=== PATIENT | female | born 1930 | race Two or more races ===

== ENCOUNTER 2016-07-07 09:47 | Inpatient (IN) | payer OTHER, MEDICAID ==
[~2016-07-07] VITALS: Ht 165.1 cm; Wt 23.2 kg
[2016-07-07 10:38] LABS: Basophils # (auto) 0 uL; Eosinophils # (auto) 0 uL; Hematocrit 35.7 % (36.0-46.0); Hemoglobin 11.9 g/dL (12.2-16.2); Lymphocytes # (auto) 0.5 uL; Lymphocytes % (auto) 6.9 % (10.0-50.0); Mean Corpuscular Hemoglobin 30.1 pg (28.0-32.0); Mean Corpuscular Hgb Conc. 33.4 g/dL (32.0-36.0); Mean Platelet Volume 8.1 fL (7.4-10.4); Monocytes # (auto) 0.5 uL; Monocytes % (auto) 6.9 % (0.0-12.0); Neutrophils # (auto) 6.2 uL; Neutrophils % (auto) 86.2 % (37.0-80.0); Platelet Count (auto) 190 10^3/uL (140-450); Red Cell Distribution Width 13.1 % (11.6-16.0); White Blood Cell 7.3 10^3/uL (4.4-10.8)
[2016-07-07 10:55] LABS: Albumin 2.7 g/dL (3.4-5.0); BUN/Creatinine Ratio 13.5; Bilirubin, Total 0.2 mg/dL (0.2-1.0); Potassium 3.6 mmol/L (3.5-5.1); Total Protein 6.6 g/dL (6.4-8.2)
[2016-07-07 12:11] LABS: INR 1.04 (0.9-1.15); Partial Thromboplastin Time 29.5 sec (22.64-33.71); Prothrombin Time 10.7 sec (9.37-12.3)
[2016-07-07 12:51] LABS: B-Type Natriuretic Peptide 303.7 pg/mL (0-100); Temperature: 22.5 C (20.0-25.0)
[2016-07-07] MEDS ORDERED: IPRATROPIUM BROM 0.5 MG/2.5ML INH SOL NEB ONE (13:00)
[2016-07-07] MEDS ORDERED: ALBUTEROL SULF 2.5 MG/0.5ML(0.5%) NEB SOLN NEB ONE (13:00)
[2016-07-07] MEDS ORDERED: FUROSEMIDE 20 MG/2 ML VIAL IV ONE (13:00)
[2016-07-07] MEDS ORDERED: TEMAZEPAM 15 MG CAP PO PRN (13:15)
[2016-07-07] MEDS ORDERED: ALBUTEROL SULF 2.5 MG/0.5ML(0.5%) NEB SOLN NEB PRN (13:15)
[2016-07-07] MEDS ORDERED: ACETAMINOPHEN 500 MG TAB PO PRN (13:15)
[2016-07-07] MEDS ORDERED: OSELTAMIVIR 75 MG CAP PO ONE (13:15)
[2016-07-07] MEDS ORDERED: methylPREDNISolone SOD SUCC 40 MG/ML VL IV SCH (13:15)
[2016-07-07] MEDS ORDERED: LORazepam 0.5 MG TAB PO PRN (13:15)
[2016-07-07] MEDS ORDERED: ONDANSETRON HCL 4 MG/2 ML VIAL IV PRN (13:15)
[2016-07-07] MEDS ORDERED: MORPHINE SULF INJ 2 MG/ML SYRINGE 1ML IV PRN ×2 (13:15)
[2016-07-07] MEDS ORDERED: HYDROcodone-ACET 5/325MG TAB PO PRN (13:15)
[2016-07-07] MEDS ORDERED: LACTULOSE 20Gm/30ML SOLN PO PRN ×2 (13:15)
[2016-07-07] MEDS ORDERED: NITROGLYCERIN 0.4 MG SL TAB SL PRN (13:15)
[2016-07-07] MEDS ORDERED: ENOXAPARIN SOD 40 MG/0.4 ML SYRINGE SC ONE (13:30)
[2016-07-07] MEDS: SODIUM CHLOR 0.9% PF (SALINE LOCK) 10ML VIAL IV SCH ×2 (13:42→22:10)
[2016-07-07] MEDS ORDERED: [UNRECOGNIZED DRUG - CODE] PO (14:10)
[2016-07-07] MEDS ORDERED: ATOR40TA52 PO (14:10)
[2016-07-07] MEDS ORDERED: AMLO5TAB2 PO (14:11)
[2016-07-07] MEDS ORDERED: LISI40TA PO (14:11)
[2016-07-07] MEDS ORDERED: IOHEXOL 350 MG/ML 100ML IJ ONE (14:11)
[2016-07-07] MEDS ORDERED: MELO-85 PO (14:11)
[2016-07-07] MEDS: ALBUTEROL SULF 2.5 MG/0.5ML(0.5%) NEB SOLN NEB SCH (18:24)
[2016-07-07] MEDS: IPRATROPIUM BROM 0.5 MG/2.5ML INH SOL NEB SCH (18:24)
[2016-07-07 20:54] VITALS: BP 127/64
[2016-07-07] MEDS ORDERED: OSELTAMIVIR 75 MG CAP PO SCH (22:00)
[2016-07-07] MEDS: CARVEDILOL 3.125 MG TAB PO SCH (22:17)
[2016-07-08] MEDS: IPRATROPIUM BROM 0.5 MG/2.5ML INH SOL NEB SCH ×4 (00:38→19:51)
[2016-07-08] MEDS: ALBUTEROL SULF 2.5 MG/0.5ML(0.5%) NEB SOLN NEB SCH ×4 (00:38→19:51)
[2016-07-08] MEDS: SODIUM CHLOR 0.9% PF (SALINE LOCK) 10ML VIAL IV SCH ×3 (06:19→21:41)
[2016-07-08 07:55] LABS: B-Type Natriuretic Peptide 484.55 pg/mL (0-100)
[2016-07-08 07:56] LABS: Temperature: 22.5 C (20.0-25.0)
[2016-07-08] MEDS ORDERED: FUROSEMIDE 40 MG/4 ML VIAL IV SCH (10:00)
[2016-07-08] MEDS ORDERED: POTASSIUM CHL 20 Meq TABLET PO SCH (10:00)
[2016-07-08] MEDS ORDERED: OSELTAMIVIR 30 MG CAP PO SCH (10:00)
[2016-07-08] MEDS ORDERED: NITROGLYCERIN 0.2MG/HR TOPICAL PATCH TD SCH (10:00)
[2016-07-08] MEDS ORDERED: ENOXAPARIN SOD 40 MG/0.4 ML SYRINGE SC SCH (10:00)
[2016-07-08] MEDS: ENALAPRIL MALEATE 2.5 MG TAB PO SCH (10:36)
[2016-07-08] MEDS: CARVEDILOL 3.125 MG TAB PO SCH ×2 (10:37→21:42)
[2016-07-08] MEDS: AZITHROMYCIN 500MG/D5W 250ML 250 ML IV SCH (10:37)
[2016-07-08] MEDS: ASPirin 81 mg TAB PO SCH (10:37)
[2016-07-08] MEDS: OSELTAMIVIR 30 MG CAP PO SCH ×2 (11:21→21:42)
[2016-07-08 16:15] VITALS: BP 126/64
[2016-07-08] MEDS ORDERED: SODIUM CHLORIDE 0.9% 1,000 ML IV SCH (17:15)
[2016-07-08] MEDS ORDERED: WARFARIN SODIUM 5 MG TAB PO ONE (17:45)
[2016-07-08 18:19] VITALS: BP 126/64
[2016-07-08 20:18] VITALS: BP 149/71
[2016-07-08] MEDS: methylPREDNISolone SOD SUCC 40 MG/ML VL IV SCH (21:41)
[2016-07-09 00:58] VITALS: BP 125/61
[2016-07-09 04:42] VITALS: BP 124/78
[2016-07-09] MEDS: SODIUM CHLOR 0.9% PF (SALINE LOCK) 10ML VIAL IV SCH ×2 (04:57→13:42)
[2016-07-09] MEDS: methylPREDNISolone SOD SUCC 40 MG/ML VL IV SCH ×2 (04:57→13:42)
[2016-07-09] MEDS: ALBUTEROL SULF 2.5 MG/0.5ML(0.5%) NEB SOLN NEB SCH ×3 (05:45→11:46)
[2016-07-09] MEDS: IPRATROPIUM BROM 0.5 MG/2.5ML INH SOL NEB SCH ×3 (05:45→11:46)
[2016-07-09 06:27] LABS: INR 1.06 (0.9-1.15); Partial Thromboplastin Time 25.9 sec (22.64-33.71); Prothrombin Time 10.9 sec (9.37-12.3)
[2016-07-09 08:00] VITALS: BP 122/66
[2016-07-09] MEDS: AZITHROMYCIN 500MG/D5W 250ML 250 ML IV SCH (10:15)
[2016-07-09] MEDS: ASPirin 81 mg TAB PO SCH (10:15)
[2016-07-09] MEDS: ENALAPRIL MALEATE 2.5 MG TAB PO SCH (10:16)
[2016-07-09] MEDS: OSELTAMIVIR 30 MG CAP PO SCH (10:16)
[2016-07-09] MEDS: CARVEDILOL 3.125 MG TAB PO SCH (10:16)
[2016-07-09 11:42] VITALS: BP 118/66
[2016-07-09] MEDS ORDERED: ALBUAER3 IN (12:58)
[2016-07-09] MEDS ORDERED: METH4PAK PO (12:58)
[2016-07-09] MEDS ORDERED: ENA2.5T PO (12:58)
[2016-07-09] MEDS ORDERED: CAR3125T PO (12:58)
[2016-07-09] MEDS ORDERED: LEVO500T3 PO (12:58)
[2016-07-09] MEDS ORDERED: WARPRX PO (12:58)
[2016-07-09 16:00] VITALS: BP 133/75
[2016-07-09 16:10] VITALS: BP 133/75
[2016-07-09] MEDS ORDERED: WARFARIN SODIUM 2.5 MG TAB PO ONE (17:00)
[2016-07-09] MEDS ORDERED: WARFARIN SODIUM 5 MG TAB PO ONE (17:00)
== END 2016-07-09 17:39 | disposition home health service (06) | DRG 177 ==
LOC: ER 10:00 → TELE 10:01 → DOU IN ICU 07-08 16:32
PROVIDERS: ADMIT Internal Medicine; ATTEND Internal Medicine
DX: J69.0 Pneumonitis due to inhalation of food and vomit (principal); I50.43 Acute on chronic combined systolic (congestive) and diastolic (congestive) heart failure; E46 Unspecified protein-calorie malnutrition; Z68.1 Body mass index [BMI] 19.9 or less, adult; J44.9 Chronic obstructive pulmonary disease, unspecified; F17.210 Nicotine dependence, cigarettes, uncomplicated; I48.91 Unspecified atrial fibrillation; M15.9 Polyosteoarthritis, unspecified; I11.0 Hypertensive heart disease with heart failure; W19.XXXA Unspecified fall, initial encounter; Z90.710 Acquired absence of both cervix and uterus
CPT/HCPCS: 36415; 71010; 71275; 73562; 80053; 82550; 83880; 84443; 84484; 85025; 85379; 85610; 85730; 87040; 87081; 92610; 93005; 93306; 94640; 96372; 96374; 96375; G9035

== ENCOUNTER 2016-07-11 09:20 | Inpatient (IN) | payer OTHER, MEDICAID ==
[~2016-07-11] VITALS: Ht 157.5 cm; Wt 57.0 kg
[~2016-07-11 09:20] MED LIST: ALBUAER3 IN; ATOR40TA52 PO; CAR3125T PO; ENA2.5T PO; LEVO500T3 PO; MELO-85 PO; METH4PAK PO; WARPRX PO; [UNRECOGNIZED DRUG - CODE] PO
[2016-07-11] MEDS ORDERED: SODIUM CHLORIDE 0.9% 1,000 ML IV ONE (09:45)
[2016-07-11] MEDS ORDERED: DILTIAZEM 125mg/125ml BAG KIT 125 ML IV ONE (09:45)
[2016-07-11] MEDS ORDERED: DILTIAZEM HCL 25 MG/5 ML VIAL IV ONE ×2 (09:45→10:45)
[2016-07-11 09:58] LABS: Basophils # (auto) 0 uL; Basophils % (auto) 0.1 % (0.0-2.0); Eosinophils # (auto) 0 uL; Eosinophils % (auto) 0.1 % (0.0-7.0); Hemoglobin 12.5 g/dL (12.2-16.2); Lymphocytes # (auto) 1.2 uL; Lymphocytes % (auto) 10.7 % (10.0-50.0); Mean Corpuscular Hemoglobin 30.1 pg (28.0-32.0); Mean Corpuscular Volume 91.2 fL (80.0-100.0); Mean Platelet Volume 8.1 fL (7.4-10.4); Monocytes # (auto) 0.8 uL; Monocytes % (auto) 7.1 % (0.0-12.0); Neutrophils # (auto) 8.9 uL; Platelet Count (auto) 278 10^3/uL (140-450); Red Cell Distribution Width 13.4 % (11.6-16.0); White Blood Cell 10.8 10^3/uL (4.4-10.8)
[2016-07-11] MEDS ORDERED: AZITHROMYCIN 250 MG TAB PO ONE (10:15)
[2016-07-11] MEDS ORDERED: cefTRIAXone 1GM/50ML D5W 50 ML IV ONE (10:15)
[2016-07-11 10:22] LABS: Albumin 2.5 g/dL (3.4-5.0); BUN/Creatinine Ratio 26.4; Bilirubin, Total 0.4 mg/dL (0.2-1.0); Calcium 8.1 mg/dL (8.5-10.1); Magnesium 2.2 mg/dL (1.6-2.6); Potassium 3.3 mmol/L (3.5-5.1); Total Protein 6.8 g/dL (6.4-8.2)
[2016-07-11] MEDS ORDERED: ALBUTEROL SULF 2.5 MG/0.5ML(0.5%) NEB SOLN NEB PRN (11:00)
[2016-07-11] MEDS ORDERED: VANCOMYCIN PER PHARMACY 0 MG IV SCH (11:00)
[2016-07-11] MEDS ORDERED: MORPHINE SULF INJ 2 MG/ML SYRINGE 1ML IV PRN (11:00)
[2016-07-11] MEDS ORDERED: PIPERACILLIN-TAZOB 3.375GM 100 ML IV ONE (11:00)
[2016-07-11] MEDS ORDERED: VANCOMYCIN 1GM/250ML D5W 250 ML IV ONE (11:00)
[2016-07-11] MEDS ORDERED: NITROGLYCERIN 0.4 MG SL TAB SL PRN (11:00)
[2016-07-11] MEDS: SODIUM CHLORIDE 0.9% 1,000 ML IV SCH ×2 (11:29→23:56)
[2016-07-11] MEDS ORDERED: OSELTAMIVIR 30 MG CAP PO ONE (11:30)
[2016-07-11] MEDS: ALBUTEROL SULF 2.5 MG/0.5ML(0.5%) NEB SOLN NEB SCH ×2 (11:36→18:58)
[2016-07-11] MEDS: IPRATROPIUM BROM 0.5 MG/2.5ML INH SOL NEB SCH ×2 (11:36→18:58)
[2016-07-11] MEDS: PIPERACILLIN-TAZOB 3.375GM 100 ML IV SCH ×3 (12:00→23:56)
[2016-07-11 12:13] LABS: B-Type Natriuretic Peptide 442.49 pg/mL (0-100); Temperature: 22.4 C (20.0-25.0)
[2016-07-11 12:49] VITALS: BP 142/73
[2016-07-11 12:52] VITALS: BP 142/73
[2016-07-11 16:53] VITALS: BP 139/59
[2016-07-11 21:23] VITALS: BP 139/59
[2016-07-11] MEDS: OSELTAMIVIR 30 MG CAP PO SCH (22:09)
[2016-07-11 23:08] VITALS: BP 129/72
[2016-07-12] MEDS: ALBUTEROL SULF 2.5 MG/0.5ML(0.5%) NEB SOLN NEB SCH ×4 (00:21→18:58)
[2016-07-12] MEDS: IPRATROPIUM BROM 0.5 MG/2.5ML INH SOL NEB SCH ×4 (00:22→18:58)
[2016-07-12 05:13] VITALS: BP 115/73
[2016-07-12] MEDS: PIPERACILLIN-TAZOB 3.375GM 100 ML IV SCH ×2 (05:54→12:06)
[2016-07-12 06:41] LABS: Basophils # (auto) 0 uL; Basophils % (auto) 0.2 % (0.0-2.0); Eosinophils # (auto) 0.1 uL; Eosinophils % (auto) 1.2 % (0.0-7.0); Hematocrit 32.3 % (36.0-46.0); Hemoglobin 10.7 g/dL (12.2-16.2); Lymphocytes # (auto) 1.6 uL; Lymphocytes % (auto) 20.2 % (10.0-50.0); Mean Corpuscular Hemoglobin 29.8 pg (28.0-32.0); Mean Corpuscular Volume 90.3 fL (80.0-100.0); Mean Platelet Volume 8.5 fL (7.4-10.4); Monocytes # (auto) 0.7 uL; Monocytes % (auto) 8.9 % (0.0-12.0); Neutrophils # (auto) 5.4 uL; Neutrophils % (auto) 69.5 % (37.0-80.0); Platelet Count (auto) 257 10^3/uL (140-450); Red Cell Distribution Width 13.9 % (11.6-16.0); White Blood Cell 7.8 10^3/uL (4.4-10.8)
[2016-07-12 07:00] LABS: Albumin 1.9 g/dL (3.4-5.0); BUN/Creatinine Ratio 20.8; Bilirubin, Total 0.3 mg/dL (0.2-1.0); Calcium 7.9 mg/dL (8.5-10.1); Total Protein 5.6 g/dL (6.4-8.2)
[2016-07-12 09:00] VITALS: BP 121/67
[2016-07-12] MEDS: OSELTAMIVIR 30 MG CAP PO SCH (09:55)
[2016-07-12] MEDS ORDERED: AZITHROMYCIN 500MG/D5W 250ML 250 ML IV SCH (10:00)
[2016-07-12] MEDS ORDERED: VANCOMYCIN 1GM/250ML D5W 250 ML IV SCH (12:00)
[2016-07-12] MEDS ORDERED: METOPROLOL TARTRATE 25 MG TAB PO SCH (12:15)
[2016-07-12] MEDS ORDERED: METOPROLOL TARTRATE 1MG/1ML-5ML VIAL IV ONE (12:15)
[2016-07-12] MEDS ORDERED: POTASSIUM CHL 10% (20 MEQ/15ML) ORAL SOLN PO ONE (12:15)
[2016-07-12 13:00] VITALS: BP 133/72
[2016-07-12] MEDS: POTASSIUM CHL 20MEQ/100ML 100 ML IV SCH ×2 (13:09→14:59)
[2016-07-12] MEDS: SODIUM CHLORIDE 0.9% 1,000 ML IV SCH (13:18)
[2016-07-12] MEDS ORDERED: DIGOXIN (250MCG/ML) 2 ML AMPULE IV ONE (14:00)
[2016-07-12] MEDS ORDERED: OSEL75CA11 PO (14:53)
[2016-07-12 17:00] VITALS: BP 121/45
[2016-07-12 17:58] VITALS: BP 121/45
[2016-07-12 18:14] VITALS: BP 121/48
[2016-07-13] MEDS ORDERED: DIGOXIN 0.125 MG TAB PO SCH (10:00)
== END 2016-07-12 20:45 | disposition home or self-care (01) | DRG 177 ==
LOC: EDUNIT# 09:20 → ER 09:21 → TELE 09:22 → TELE-WESTW 12:26
PROVIDERS: ADMIT Internal Medicine; ATTEND Internal Medicine
DX: J69.0 Pneumonitis due to inhalation of food and vomit (principal); E43 Unspecified severe protein-calorie malnutrition; I50.9 Heart failure, unspecified; I70.0 Atherosclerosis of aorta; M19.90 Unspecified osteoarthritis, unspecified site; M81.0 Age-related osteoporosis without current pathological fracture; I48.0 Paroxysmal atrial fibrillation; I11.0 Hypertensive heart disease with heart failure; J44.9 Chronic obstructive pulmonary disease, unspecified; Z90.710 Acquired absence of both cervix and uterus; J11.1 Influenza due to unidentified influenza virus with other respiratory manifestations
CPT/HCPCS: 36415; 71010; 80053; 83605; 83735; 83880; 84484; 85025; 85049; 87040; 87081; 87400; 93005; 94640; 94761; 96361; 96374; G9035; J0696; J2543; J3480

== ENCOUNTER 2016-09-27 14:32 | Emergency (ER) | payer OTHER, MEDICAID ==
[~2016-09-27] VITALS: Ht 162.6 cm; Wt 49.9 kg
[~2016-09-27 14:32] MED LIST changes: +ALEN70TA55 PO; -ENA2.5T PO; +HYDR-2652 PO; +LISI-275 PO; -MELO-85 PO
[2016-09-27 14:45] VITALS: BP 105/57
[2016-09-27] MEDS ORDERED: GLYCERIN ADULT RECTAL SUPP PR ONE (17:00)
[2016-09-27] MEDS ORDERED: TRAM50TA2 PO (17:10)
[2016-09-27] MEDS ORDERED: CITA10TA59 PO (17:10)
[2016-09-27] MEDS ORDERED: DOCU-80 PO (17:10)
[2016-09-27] MEDS ORDERED: ALPR0.25 PO (17:10)
[2016-09-27] MEDS ORDERED: FLEET ENEMA(ADULT) 135 ML PR ONE (18:15)
== END 2016-09-27 21:04 | disposition home or self-care (01) ==
LOC: ER 14:32
DX: K59.00 Constipation, unspecified (principal); I11.0 Hypertensive heart disease with heart failure; I50.9 Heart failure, unspecified; M19.90 Unspecified osteoarthritis, unspecified site; Z90.710 Acquired absence of both cervix and uterus
CPT/HCPCS: 74000

== ENCOUNTER 2016-09-29 09:40 | Inpatient (IN) | payer OTHER, MEDICAID ==
[~2016-09-29] VITALS: Ht 167.6 cm; Wt 52.7 kg
[~2016-09-29 09:40] MED LIST changes: -ALEN70TA55 PO; +ALPR0.25 PO; +CITA10TA59 PO; +DOCU-80 PO; -LEVO500T3 PO; -METH4PAK PO; +TRAM50TA2 PO; -[UNRECOGNIZED DRUG - CODE] PO
[2016-09-29 10:39] LABS: Basophils # (auto) 0 uL; Basophils % (auto) 0.6 % (0.0-2.0); Eosinophils # (auto) 0.2 uL; Eosinophils % (auto) 3.1 % (0.0-7.0); Hematocrit 35.8 % (36.0-46.0); Hemoglobin 12.1 g/dL (12.2-16.2); Lymphocytes # (auto) 0.7 uL; Lymphocytes % (auto) 13.1 % (10.0-50.0); Mean Corpuscular Hemoglobin 30.5 pg (28.0-32.0); Mean Corpuscular Hgb Conc. 33.7 g/dL (32.0-36.0); Mean Corpuscular Volume 90.5 fL (80.0-100.0); Monocytes # (auto) 0.6 uL; Monocytes % (auto) 10.7 % (0.0-12.0); Neutrophils # (auto) 3.8 uL; Neutrophils % (auto) 72.5 % (37.0-80.0); Platelet Count (auto) 234 10^3/uL (140-450); Red Cell Distribution Width 13.5 % (11.6-16.0); White Blood Cell 5.3 10^3/uL (4.4-10.8)
[2016-09-29 10:51] LABS: BUN/Creatinine Ratio 17.3; Bilirubin, Total 0.4 mg/dL (0.2-1.0); Calcium 8.6 mg/dL (8.5-10.1); Potassium 3.9 mmol/L (3.5-5.1); Total Protein 7.1 g/dL (6.4-8.2)
[2016-09-29 12:05] LABS: Urine RBC None Seen /hpf (0 - 4)
[2016-09-29 12:47] LABS: Urine Bilirubin Negative (Negative); Urine Blood Negative /uL (Negative); Urine Color Yellow (Yellow); Urine Glucose Normal (Normal); Urine Ketone Negative (Negative); Urine Nitrite Negative (Negative); Urine Squamous Epithelial Cell FEW /hpf (<5); Urine Urobilinogen Normal (Negative)
[2016-09-29] MEDS: FLEET ENEMA(ADULT) 135 ML PR ONE (13:00)
[2016-09-29] MEDS ORDERED: KETOROLAC TROMETH 30 MG/ML 1ML VIAL IV ONE (13:15)
[2016-09-29] MEDS ORDERED: ACETAMINOPHEN 500 MG TAB PO PRN (13:30)
[2016-09-29] MEDS ORDERED: DOCUSATE SOD 100 MG CAP PO ONE (13:30)
[2016-09-29] MEDS ORDERED: PROCHLORPERAZINE EDISYLATE 5 MG/ML 2ML VIAL IV PRN (13:30)
[2016-09-29] MEDS ORDERED: BISACODYL 10 MG RECT SUPP PR ONE (13:30)
[2016-09-29] MEDS ORDERED: MILK OF MAGNESIA 30ML SUSP PO ONE (13:30)
[2016-09-29] MEDS ORDERED: BISACODYL 10 MG RECT SUPP PR PRN (13:30)
[2016-09-29] MEDS ORDERED: LORazepam 0.5 MG TAB PO PRN (13:30)
[2016-09-29] MEDS ORDERED: PANTOPRAZOLE 40 MG TAB PO ONE (13:45)
[2016-09-29] MEDS ORDERED: hydrALAZINE HCL 20 MG/ML VL ONE (13:57)
[2016-09-29] MEDS: SODIUM CHLORIDE 0.9% 1,000 ML IV SCH (14:06)
[2016-09-29] MEDS ORDERED: CARV3.1240 PO (14:48)
[2016-09-29] MEDS ORDERED: WARF2TAB49 PO (14:48)
[2016-09-29] MEDS ORDERED: LISI-646 PO (14:48)
[2016-09-29] MEDS ORDERED: HYDR-2652 PO (14:48)
[2016-09-29 15:06] LABS: INR 1.63 (0.9-1.15); Prothrombin Time 17.4 sec (9.37-12.3)
[2016-09-29] MEDS: hydrALAZINE HCL 20 MG/ML VL IV PRN (16:53)
[2016-09-29] MEDS ORDERED: WARFARIN SODIUM 2 MG TAB PO ONE (17:00)
[2016-09-29 21:45] VITALS: BP 166/62
[2016-09-29] MEDS: DOCUSATE SOD 100 MG CAP PO SCH (21:49)
[2016-09-30] MEDS: SODIUM CHLORIDE 0.9% 1,000 ML IV SCH ×2 (00:53→09:16)
[2016-09-30] MEDS: FLEET ENEMA(ADULT) 135 ML PR ONE (02:33)
[2016-09-30 05:30] VITALS: BP 178/58
[2016-09-30 06:36] LABS: Partial Thromboplastin Time 30.4 sec (22.64-33.71)
[2016-09-30 06:48] LABS: INR 1.82 (0.9-1.15); Prothrombin Time 19.7 sec (9.37-12.3)
[2016-09-30 08:55] VITALS: BP 177/69
[2016-09-30] MEDS: DOCUSATE SOD 100 MG CAP PO SCH (09:17)
[2016-09-30] MEDS: hydrALAZINE HCL 20 MG/ML VL IV PRN (09:21)
[2016-09-30] MEDS ORDERED: PANTOPRAZOLE 40 MG TAB PO SCH (10:00)
[2016-09-30] MEDS ORDERED: MILK OF MAGNESIA 30ML SUSP PO SCH (10:00)
[2016-09-30] MEDS ORDERED: hydrALAZINE HCL 20 MG/ML VL IV PRN (11:15)
[2016-09-30] MEDS ORDERED: LACTULOSE 20Gm/30ML SOLN PO PRN (11:15)
[2016-09-30] MEDS ORDERED: CARVEDILOL 3.125 MG TAB PO SCH (11:15)
[2016-09-30] MEDS ORDERED: POLYETHYLENE GLYCOL 17GM PWDR PO PRN (11:15)
[2016-09-30] MEDS ORDERED: ALBUTEROL SULF 2.5 MG/0.5ML(0.5%) NEB SOLN NEB PRN (11:15)
[2016-09-30] MEDS ORDERED: hydrALAZINE HCL 25 MG TAB PO PRN (11:15)
[2016-09-30] MEDS ORDERED: LISINOPRIL 20 MG TAB PO SCH (11:15)
[2016-09-30] MEDS ORDERED: CITALOPRAM HYDROBR 20 MG TAB PO SCH (11:15)
[2016-09-30] MEDS ORDERED: SENN8.6C PO (11:27)
[2016-09-30] MEDS ORDERED: LACT10SO PO (11:27)
[2016-09-30] MEDS ORDERED: POLY33504 PO (11:27)
[2016-09-30] MEDS ORDERED: MOMLQ PO (11:27)
[2016-09-30] MEDS ORDERED: DOCU100C8 PO (11:27)
[2016-09-30 13:00] VITALS: BP 140/86
[2016-09-30 16:50] VITALS: BP 177/68
[2016-09-30] MEDS ORDERED: WARFARIN SODIUM 2 MG TAB PO ONE (17:00)
== END 2016-09-30 17:50 | disposition home health service (06) | DRG 392 ==
LOC: ER 09:40 → OVERFLOW 09:41 → EAST 14:24 → WEST WING 17:47
PROVIDERS: ADMIT Internal Medicine; ATTEND Internal Medicine
DX: K57.90 Diverticulosis of intestine, part unspecified, without perforation or abscess without bleeding (principal); S22.089A Unspecified fracture of T11-T12 vertebra, initial encounter for closed fracture; K59.00 Constipation, unspecified; I50.9 Heart failure, unspecified; I11.0 Hypertensive heart disease with heart failure; M19.90 Unspecified osteoarthritis, unspecified site; I48.91 Unspecified atrial fibrillation; E78.5 Hyperlipidemia, unspecified; F32.9 Major depressive disorder, single episode, unspecified; F41.9 Anxiety disorder, unspecified; I48.0 Paroxysmal atrial fibrillation; J45.909 Unspecified asthma, uncomplicated; M85.80 Other specified disorders of bone density and structure, unspecified site; Z83.3 Family history of diabetes mellitus; Z82.49 Family history of ischemic heart disease and other diseases of the circulatory system; Z90.710 Acquired absence of both cervix and uterus
CPT/HCPCS: 36415; 74176; 80053; 81001; 82150; 82378; 83690; 85025; 85610; 85652; 85730; 86141; 87081; 93005; 96374; J1885

== ENCOUNTER 2016-10-06 06:53 | Emergency (ER) | payer OTHER, MEDICAID ==
[~2016-10-06] VITALS: Ht 162.6 cm; Wt 49.9 kg
[~2016-10-06 06:53] MED LIST changes: -CAR3125T PO; +CARV3.1240 PO; +DOCU100C8 PO; +LACT10SO PO; -LISI-275 PO; +LISI-646 PO; +MOMLQ PO; +POLY33504 PO; +SENN8.6C PO; +WARF2TAB49 PO; -WARPRX PO
[2016-10-06 08:09] LABS: Basophils # (auto) 0 uL; Basophils % (auto) 0.6 % (0.0-2.0); Eosinophils # (auto) 0.2 uL; Hematocrit 36.7 % (36.0-46.0); Hemoglobin 12.1 g/dL (12.2-16.2); Lymphocytes % (auto) 16.2 % (10.0-50.0); Mean Corpuscular Hemoglobin 30.3 pg (28.0-32.0); Mean Corpuscular Volume 91.8 fL (80.0-100.0); Mean Platelet Volume 8.1 fL (7.4-10.4); Monocytes # (auto) 0.5 uL; Monocytes % (auto) 8.1 % (0.0-12.0); Neutrophils # (auto) 4.3 uL; Neutrophils % (auto) 72.1 % (37.0-80.0); Platelet Count (auto) 250 10^3/uL (140-450); Red Cell Distribution Width 13.4 % (11.6-16.0)
[2016-10-06 08:23] LABS: Urine Bilirubin Negative (Negative); Urine Blood Negative /uL (Negative); Urine Color Yellow (Yellow); Urine Glucose Normal (Normal); Urine Ketone Negative (Negative); Urine Nitrite Negative (Negative); Urine RBC 51 /hpf (0 - 4); Urine Squamous Epithelial Cell MANY /hpf (<5); Urine Urobilinogen Normal (Negative)
[2016-10-06] MEDS ORDERED: FLEET ENEMA(ADULT) 135 ML PR ONE (08:30)
[2016-10-06 08:46] LABS: Alkaline Phosphatase 91 U/L (45-117); Anion Gap 10 (5-15); Aspartate Aminotransferase 25 U/L (15-37); BUN/Creatinine Ratio 18.9; Bilirubin, Total 0.3 mg/dL (0.2-1.0); Blood Urea Nitrogen 10 mg/dL (7-18); Calcium 8.7 mg/dL (8.5-10.1); Carbon Dioxide 27 mmol/L (21-32); Chloride 107 mmol/L (98-107); GFR African American 141 mL/min; GFR Non-African American 116 mL/min; Glucose 112 mg/dL (74-106); Potassium 3.8 mmol/L (3.5-5.1); Sodium 144 mmol/L (136-145); Total Protein 7.1 g/dL (6.4-8.2)
[2016-10-06 13:16] VITALS: BP 176/64
== END 2016-10-06 13:16 | disposition home or self-care (01) ==
LOC: ER 06:53
DX: N39.0 Urinary tract infection, site not specified (principal); K59.00 Constipation, unspecified; Z87.891 Personal history of nicotine dependence; I11.0 Hypertensive heart disease with heart failure; I50.9 Heart failure, unspecified; E78.5 Hyperlipidemia, unspecified; M19.90 Unspecified osteoarthritis, unspecified site; Z79.899 Other long term (current) drug therapy
CPT/HCPCS: 36415; 74176; 80053; 81001; 84484; 85025; 93005

== ENCOUNTER 2017-11-03 11:13 | Inpatient (IN) | payer OTHER, MEDICAID ==
[~2017-11-03] VITALS: Ht 160 cm; Wt 57.8 kg
[~2017-11-03 11:13] MED LIST changes: -HYDR-2652 PO; +HYDR50TA15 PO; -LACT10SO PO; +LACT10SO3 PO
[2017-11-03 11:59] LABS: Basophils # (auto) 0 uL; Basophils % (auto) 0.5 % (0.0-2.0); Eosinophils # (auto) 0.1 uL; Eosinophils % (auto) 1.1 % (0.0-7.0); Hematocrit 30.8 % (36.0-46.0); Hemoglobin 10.5 g/dL (12.2-16.2); Lymphocytes # (auto) 0.8 uL; Lymphocytes % (auto) 13.1 % (10.0-50.0); Mean Corpuscular Hemoglobin 30.9 pg (28.0-32.0); Mean Corpuscular Hgb Conc. 34.2 g/dL (32.0-36.0); Mean Corpuscular Volume 90.2 fL (80.0-100.0); Monocytes # (auto) 0.5 uL; Monocytes % (auto) 8.2 % (0.0-12.0); Neutrophils # (auto) 4.8 uL; Neutrophils % (auto) 77.1 % (37.0-80.0); Platelet Count (auto) 195 10^3/uL (140-450); Red Blood Cells 3.41 10^6/uL (4.0-5.20); Red Cell Distribution Width 13.4 % (11.8-14.3); White Blood Cell 6.3 10^3/uL (4.4-10.8)
[2017-11-03 12:28] LABS: Albumin 2.4 g/dL (3.4-5.0); BUN/Creatinine Ratio 13.2; Bilirubin, Total 0.4 mg/dL (0.2-1.0); Calcium 7.7 mg/dL (8.5-10.1); Potassium 3.2 mmol/L (3.5-5.1)
[2017-11-03] MEDS ORDERED: SODIUM CHLORIDE 0.9% 1,000 ML IV ONE (12:36)
[2017-11-03] MEDS ORDERED: LEVOFLOXACIN 500MG 100 ML IV ONE (12:45)
[2017-11-03] MEDS: SODIUM CHLORIDE 0.9% 1,000 ML IV SCH (14:17)
[2017-11-03] MEDS ORDERED: traMADol HCL 50 MG TAB PO PRN ×2 (14:30→14:45)
[2017-11-03] MEDS ORDERED: TEMAZEPAM 15 MG CAP PO PRN (14:30)
[2017-11-03] MEDS ORDERED: LACTULOSE 20Gm/30ML SOLN PO PRN (14:30)
[2017-11-03] MEDS ORDERED: NITROGLYCERIN 0.4 MG SL TAB SL PRN (14:30)
[2017-11-03] MEDS ORDERED: PROMETHAZINE HCL 25 MG/ML 1ML IV PRN (14:30)
[2017-11-03] MEDS: cefTRIAXone 1GM/10ml IVPUSH 10 ML IV SCH (14:30)
[2017-11-03] MEDS ORDERED: ACETAMINOPHEN 500 MG TAB PO PRN (14:30)
[2017-11-03] MEDS ORDERED: ALBUTEROL SULF 2.5 MG/0.5ML(0.5%) NEB SOLN NEB PRN (14:30)
[2017-11-03] MEDS ORDERED: POTASSIUM CHL 20 Meq TABLET PO ONE (14:30)
[2017-11-03] MEDS ORDERED: MORPHINE SULFATE 4 MG/ML SYR/VIAL IV PRN ×2 (14:30)
[2017-11-03] MEDS ORDERED: MILK OF MAGNESIA 30ML SUSP PO PRN (14:30)
[2017-11-03] MEDS ORDERED: APIX2.5T PO (14:42)
[2017-11-03] MEDS: hydrALAZINE HCL 25 MG TAB PO SCH ×2 (14:45→21:23)
[2017-11-03 15:22] VITALS: BP 141/42
[2017-11-03 17:00] VITALS: BP 185/77
[2017-11-03] MEDS: LABETALOL HCL 5 MG/ML ML 20ML VIAL IV PRN (17:50)
[2017-11-03] MEDS: ALBUTEROL SULF 2.5 MG/0.5ML(0.5%) NEB SOLN NEB SCH ×2 (19:29→23:28)
[2017-11-03] MEDS: IPRATROPIUM BROM 0.5 MG/2.5ML INH SOL NEB SCH ×2 (19:29→23:28)
[2017-11-03 20:00] VITALS: BP 161/74
[2017-11-03] MEDS: APIXABAN 2.5 MG TAB PO SCH (21:22)
[2017-11-03] MEDS: CARVEDILOL 3.125 MG TAB PO SCH (21:23)
[2017-11-03] MEDS: DOCUSATE SOD 100 MG CAP PO SCH (21:23)
[2017-11-03 22:00] VITALS: BP 161/74
[2017-11-03] MEDS ORDERED: PATIENTS OWN MEDICATION (Hydralazine Hcl 1 TAB) PO SCH (22:00)
[2017-11-04] VITALS (7 sets, daily range): BP systolic 147–167; BP diastolic 0–82
[2017-11-04] MEDS: SODIUM CHLORIDE 0.9% 1,000 ML IV SCH (06:01)
[2017-11-04] MEDS: ALBUTEROL SULF 2.5 MG/0.5ML(0.5%) NEB SOLN NEB SCH ×3 (06:02→19:20)
[2017-11-04] MEDS: IPRATROPIUM BROM 0.5 MG/2.5ML INH SOL NEB SCH ×3 (06:02→19:20)
[2017-11-04] MEDS: hydrALAZINE HCL 25 MG TAB PO SCH ×3 (06:51→21:59)
[2017-11-04] MEDS: cefTRIAXone 1GM/10ml IVPUSH 10 ML IV SCH (09:22)
[2017-11-04] MEDS: DOCUSATE SOD 100 MG CAP PO SCH ×2 (09:22→21:59)
[2017-11-04] MEDS: APIXABAN 2.5 MG TAB PO SCH ×2 (09:23→22:00)
[2017-11-04] MEDS: ALPRAZolam 0.25 MG TAB PO SCH (09:23)
[2017-11-04] MEDS: CARVEDILOL 3.125 MG TAB PO SCH ×2 (09:24→21:59)
[2017-11-04] MEDS: LISINOPRIL 20 MG TAB PO SCH (09:25)
[2017-11-04] MEDS: CITALOPRAM HYDROBR 20 MG TAB PO SCH (09:25)
[2017-11-04] MEDS ORDERED: PATIENTS OWN MEDICATION (Citalopram Hydrobromide (Celexa) 20 MG) PO SCH (10:00)
[2017-11-04] MEDS ORDERED: PATIENTS OWN MEDICATION (Atorvastatin Calcium 1 TAB) PO SCH (10:00)
[2017-11-04] MEDS ORDERED: FUROSEMIDE 20 MG TAB PO ONE (14:45)
[2017-11-04] MEDS ORDERED: POTASSIUM CHL 20 Meq TABLET PO ONE (14:45)
[2017-11-04] MEDS: ATORVASTATIN 20 MG TAB PO SCH (22:00)
[2017-11-05] MEDS: IPRATROPIUM BROM 0.5 MG/2.5ML INH SOL NEB SCH ×4 (00:48→19:06)
[2017-11-05] MEDS: ALBUTEROL SULF 2.5 MG/0.5ML(0.5%) NEB SOLN NEB SCH ×4 (00:49→19:06)
[2017-11-05 05:44] VITALS: BP 155/67
[2017-11-05] MEDS: hydrALAZINE HCL 25 MG TAB PO SCH ×3 (05:48→21:24)
[2017-11-05 07:26] LABS: Potassium 3.5 mmol/L (3.5-5.1)
[2017-11-05 07:33] LABS: BUN/Creatinine Ratio 18.3
[2017-11-05 07:40] VITALS: BP 163/59
[2017-11-05 08:56] VITALS: BP 163/59
[2017-11-05] MEDS: cefTRIAXone 1GM/10ml IVPUSH 10 ML IV SCH (10:16)
[2017-11-05] MEDS: ALPRAZolam 0.25 MG TAB PO SCH (10:17)
[2017-11-05] MEDS: APIXABAN 2.5 MG TAB PO SCH ×2 (10:17→21:24)
[2017-11-05] MEDS: DOCUSATE SOD 100 MG CAP PO SCH ×2 (10:17→21:24)
[2017-11-05] MEDS: CITALOPRAM HYDROBR 20 MG TAB PO SCH (10:17)
[2017-11-05] MEDS: POTASSIUM CHL 20 Meq TABLET PO SCH (10:18)
[2017-11-05] MEDS: LISINOPRIL 20 MG TAB PO SCH (10:18)
[2017-11-05] MEDS: FUROSEMIDE 20 MG TAB PO SCH (10:19)
[2017-11-05] MEDS: CARVEDILOL 3.125 MG TAB PO SCH ×2 (10:19→21:24)
[2017-11-05] MEDS: LABETALOL HCL 5 MG/ML ML 20ML VIAL IV PRN (11:24)
[2017-11-05] MEDS: ACETYLCYSTEINE 10 %(100MG/ML) SOL 4ML NEB SCH ×2 (13:38→19:06)
[2017-11-05 14:21] VITALS: BP 160/64
[2017-11-05 16:29] VITALS: BP 143/52
[2017-11-05] MEDS: ATORVASTATIN 20 MG TAB PO SCH (21:24)
[2017-11-05 22:00] VITALS: BP 144/51
[2017-11-06] MEDS: IPRATROPIUM BROM 0.5 MG/2.5ML INH SOL NEB SCH ×4 (00:58→19:13)
[2017-11-06] MEDS: ALBUTEROL SULF 2.5 MG/0.5ML(0.5%) NEB SOLN NEB SCH ×4 (00:58→19:13)
[2017-11-06] MEDS: ACETYLCYSTEINE 10 %(100MG/ML) SOL 4ML NEB SCH ×4 (00:59→19:12)
[2017-11-06 05:00] VITALS: BP 151/68
[2017-11-06] MEDS: hydrALAZINE HCL 25 MG TAB PO SCH ×3 (05:32→21:45)
[2017-11-06] MEDS: CITALOPRAM HYDROBR 20 MG TAB PO SCH (08:20)
[2017-11-06] MEDS: cefTRIAXone 1GM/10ml IVPUSH 10 ML IV SCH (08:20)
[2017-11-06] MEDS: APIXABAN 2.5 MG TAB PO SCH ×2 (08:21→21:46)
[2017-11-06] MEDS: CARVEDILOL 3.125 MG TAB PO SCH ×2 (08:21→21:46)
[2017-11-06] MEDS: DOCUSATE SOD 100 MG CAP PO SCH ×2 (08:21→21:45)
[2017-11-06] MEDS: POTASSIUM CHL 20 Meq TABLET PO SCH (08:21)
[2017-11-06] MEDS: ALPRAZolam 0.25 MG TAB PO SCH (08:22)
[2017-11-06] MEDS: FUROSEMIDE 20 MG TAB PO SCH (08:22)
[2017-11-06] MEDS: LISINOPRIL 20 MG TAB PO SCH (08:23)
[2017-11-06 08:36] VITALS: BP 145/51
[2017-11-06 10:46] VITALS: BP 143/50
[2017-11-06 14:25] VITALS: BP 160/69
[2017-11-06 17:01] VITALS: BP 136/59
[2017-11-06] MEDS: ATORVASTATIN 20 MG TAB PO SCH (21:46)
[2017-11-06 22:00] VITALS: BP 169/53
[2017-11-07] MEDS: IPRATROPIUM BROM 0.5 MG/2.5ML INH SOL NEB SCH ×4 (00:40→18:53)
[2017-11-07] MEDS: ALBUTEROL SULF 2.5 MG/0.5ML(0.5%) NEB SOLN NEB SCH ×4 (00:40→18:53)
[2017-11-07] MEDS: ACETYLCYSTEINE 10 %(100MG/ML) SOL 4ML NEB SCH ×4 (00:41→18:53)
[2017-11-07] MEDS: hydrALAZINE HCL 25 MG TAB PO SCH ×3 (05:34→21:39)
[2017-11-07 05:50] LABS: Basophils # (auto) 0 uL; Basophils % (auto) 0.3 % (0.0-2.0); Eosinophils # (auto) 0.1 uL; Eosinophils % (auto) 1.6 % (0.0-7.0); Hematocrit 26.5 % (36.0-46.0); Hemoglobin 9.3 g/dL (12.2-16.2); Lymphocytes # (auto) 0.7 uL; Lymphocytes % (auto) 10.7 % (10.0-50.0); Mean Corpuscular Hemoglobin 31.7 pg (28.0-32.0); Mean Corpuscular Hgb Conc. 35.3 g/dL (32.0-36.0); Mean Corpuscular Volume 89.8 fL (80.0-100.0); Monocytes # (auto) 0.4 uL; Monocytes % (auto) 6.9 % (0.0-12.0); Neutrophils # (auto) 4.9 uL; Neutrophils % (auto) 80.5 % (37.0-80.0); Platelet Count (auto) 177 10^3/uL (140-450); Red Blood Cells 2.95 10^6/uL (4.0-5.20); Red Cell Distribution Width 13.1 % (11.8-14.3); White Blood Cell 6.1 10^3/uL (4.4-10.8)
[2017-11-07 06:04] LABS: Albumin 1.9 g/dL (3.4-5.0); Calcium 7.8 mg/dL (8.5-10.1); Potassium 3.4 mmol/L (3.5-5.1)
[2017-11-07 06:06] LABS: BUN/Creatinine Ratio 28.8
[2017-11-07 06:11] LABS: Bilirubin, Total 0.5 mg/dL (0.2-1.0); Total Protein 5.9 g/dL (6.4-8.2)
[2017-11-07 09:00] VITALS: BP 137/74
[2017-11-07] MEDS ORDERED: ALBUMIN 25% 100 ML IV ONE (09:30)
[2017-11-07] MEDS: cefTRIAXone 1GM/10ml IVPUSH 10 ML IV SCH (10:09)
[2017-11-07] MEDS: POTASSIUM CHL 20 Meq TABLET PO SCH (10:11)
[2017-11-07] MEDS: ALPRAZolam 0.25 MG TAB PO SCH (10:12)
[2017-11-07] MEDS: APIXABAN 2.5 MG TAB PO SCH ×2 (10:12→21:39)
[2017-11-07] MEDS: CITALOPRAM HYDROBR 20 MG TAB PO SCH (10:12)
[2017-11-07] MEDS: DOCUSATE SOD 100 MG CAP PO SCH ×2 (10:13→21:39)
[2017-11-07] MEDS: LISINOPRIL 20 MG TAB PO SCH (10:13)
[2017-11-07] MEDS: CARVEDILOL 3.125 MG TAB PO SCH ×2 (10:13→21:39)
[2017-11-07] MEDS: AZITHROMYCIN 500MG/ 250ML 250 ML IV SCH (10:15)
[2017-11-07] MEDS: FUROSEMIDE 40 MG/4 ML VIAL IV SCH (10:16)
[2017-11-07 13:00] VITALS: BP 153/67
[2017-11-07 17:00] VITALS: BP 190/77
[2017-11-07 21:30] VITALS: BP 155/57
[2017-11-07] MEDS: ATORVASTATIN 20 MG TAB PO SCH (21:39)
[2017-11-08 04:10] VITALS: BP 132/85
[2017-11-08 05:48] VITALS: BP 180/49
[2017-11-08] MEDS: LABETALOL HCL 5 MG/ML ML 20ML VIAL IV PRN (05:49)
[2017-11-08] MEDS: hydrALAZINE HCL 25 MG TAB PO SCH ×2 (07:29→14:36)
[2017-11-08 07:30] LABS: BUN/Creatinine Ratio 32.8; Potassium 3.4 mmol/L (3.5-5.1)
[2017-11-08] MEDS: IPRATROPIUM BROM 0.5 MG/2.5ML INH SOL NEB SCH ×3 (08:34→11:15)
[2017-11-08] MEDS: ACETYLCYSTEINE 10 %(100MG/ML) SOL 4ML NEB SCH ×3 (08:34→11:15)
[2017-11-08] MEDS: ALBUTEROL SULF 2.5 MG/0.5ML(0.5%) NEB SOLN NEB SCH ×3 (08:35→11:15)
[2017-11-08 09:00] VITALS: BP 140/58
[2017-11-08] MEDS: AZITHROMYCIN 500MG/ 250ML 250 ML IV SCH (09:36)
[2017-11-08] MEDS: FUROSEMIDE 40 MG/4 ML VIAL IV SCH (09:36)
[2017-11-08] MEDS: cefTRIAXone 1GM/10ml IVPUSH 10 ML IV SCH (09:36)
[2017-11-08] MEDS: DOCUSATE SOD 100 MG CAP PO SCH (09:37)
[2017-11-08] MEDS: APIXABAN 2.5 MG TAB PO SCH (09:37)
[2017-11-08] MEDS: CITALOPRAM HYDROBR 20 MG TAB PO SCH (09:37)
[2017-11-08] MEDS: POTASSIUM CHL 20 Meq TABLET PO SCH (09:38)
[2017-11-08] MEDS: CARVEDILOL 3.125 MG TAB PO SCH (09:38)
[2017-11-08] MEDS: ALPRAZolam 0.25 MG TAB PO SCH (09:39)
[2017-11-08] MEDS: LISINOPRIL 20 MG TAB PO SCH (09:40)
[2017-11-08] MEDS ORDERED: POTA20TA53 PO (12:46)
[2017-11-08] MEDS ORDERED: ALB5IS NEB (12:46)
[2017-11-08] MEDS ORDERED: FURO40TA4 PO (12:46)
[2017-11-08] MEDS ORDERED: AMOX-263 PO (12:46)
[2017-11-08] MEDS ORDERED: ACE104IS NEB (12:46)
[2017-11-08] MEDS ORDERED: AZIT500T4 PO (12:46)
[2017-11-08 13:00] VITALS: BP 121/43
[2017-11-08 16:32] VITALS: BP 145/57
[2017-11-08 16:50] VITALS: BP 145/57
[2017-11-10] MEDS ORDERED: PNEUMOCOCCAL VACC POLYS 25 MCG/0.5 ML VIAL IM ONE (06:15)
== END 2017-11-08 18:30 | disposition home health service (06) | DRG 193 ==
LOC: ER 11:13 → TELE 14:54 → TELE-WESTW 16:49 → WEST WING 11-06 16:07
PROVIDERS: ADMIT Internal Medicine; ATTEND Internal Medicine
DX: J18.9 Pneumonia, unspecified organism (principal); E43 Unspecified severe protein-calorie malnutrition; J96.00 Acute respiratory failure, unspecified whether with hypoxia or hypercapnia; I11.0 Hypertensive heart disease with heart failure; I50.9 Heart failure, unspecified; D64.9 Anemia, unspecified; F03.90 Unspecified dementia, unspecified severity, without behavioral disturbance, psychotic disturbance, mood disturbance, and anxiety; I48.0 Paroxysmal atrial fibrillation; E78.5 Hyperlipidemia, unspecified; E87.6 Hypokalemia; Z68.22 Body mass index [BMI] 22.0-22.9, adult; F32.9 Major depressive disorder, single episode, unspecified; F41.9 Anxiety disorder, unspecified; M19.90 Unspecified osteoarthritis, unspecified site; J45.909 Unspecified asthma, uncomplicated; M85.80 Other specified disorders of bone density and structure, unspecified site; Z82.49 Family history of ischemic heart disease and other diseases of the circulatory system; Z83.3 Family history of diabetes mellitus; Z90.710 Acquired absence of both cervix and uterus
CPT/HCPCS: 36415; 71045; 71046; 80048; 80053; 82550; 83605; 83880; 84484; 85025; 87040; 87070; 87205; 93005; 94640; 94667; 94668; 94761; 96374; 97116; 97530; J1956; P9047

== ENCOUNTER 2018-03-25 07:48 | Inpatient (IN) | payer OTHER, MEDICAID ==
[~2018-03-25] VITALS: Ht 154.9 cm; Wt 53.9 kg
[~2018-03-25 07:48] MED LIST changes: +ACE104IS NEB; +ALB5IS NEB; +AMOX-263 PO; +APIX2.5T PO; +AZIT500T4 PO; +FURO40TA4 PO; +POTA20TA53 PO; -WARF2TAB49 PO
[2018-03-25] MEDS ORDERED: SODIUM CHLORIDE 0.9% 1,000 ML IV ONE (08:05)
[2018-03-25] MEDS ORDERED: ACETAMINOPHEN 500 MG TAB PO ONE ×2 (08:23→08:30)
[2018-03-25 08:55] LABS: Basophils # (auto) 0 uL; Basophils % (auto) 0.3 % (0.0-2.0); Eosinophils # (auto) 0 uL; Eosinophils % (auto) 0.1 % (0.0-7.0); Hemoglobin 11.2 g/dL (12.2-16.2); Lymphocytes # (auto) 0.5 uL; Lymphocytes % (auto) 3.8 % (10.0-50.0); Mean Corpuscular Hemoglobin 30.9 pg (28.0-32.0); Mean Corpuscular Hgb Conc. 33.8 g/dL (32.0-36.0); Mean Corpuscular Volume 91.4 fL (80.0-100.0); Monocytes # (auto) 0.4 uL; Monocytes % (auto) 3.3 % (0.0-12.0); Neutrophils # (auto) 11.2 uL; Neutrophils % (auto) 92.5 % (37.0-80.0); Platelet Count (auto) 168 10^3/uL (140-450); Red Blood Cells 3.62 10^6/uL (4.0-5.20); Red Cell Distribution Width 14.4 % (11.8-14.3); White Blood Cell 12.1 10^3/uL (4.4-10.8)
[2018-03-25 09:21] LABS: Albumin 2.8 g/dL (3.4-5.0); BUN/Creatinine Ratio 24.7; Bilirubin, Total 0.8 mg/dL (0.2-1.0); Calcium 8.1 mg/dL (8.5-10.1); Magnesium 1.8 mg/dL (1.6-2.6); Potassium 3.3 mmol/L (3.5-5.1); Total Protein 7.2 g/dL (6.4-8.2)
[2018-03-25] MEDS ORDERED: IOHEXOL 350 MG/ML 100ML IJ ONE (10:29)
[2018-03-25 10:54] LABS: Urine Bacteria NONE SEEN /hpf (None Seen); Urine Blood TRACE /uL (Negative); Urine Specific Gravity 1.015 (1.001-1.035); Urine WBC 1 /hpf (0 - 5)
[2018-03-25] MEDS ORDERED: cefTRIAXone 1GM/10ml IVPUSH 10 ML IV ONE ×2 (12:30→15:15)
[2018-03-25] MEDS ORDERED: traMADol HCL 50 MG TAB PO PRN (14:45)
[2018-03-25] MEDS ORDERED: hydrALAZINE HCL 25 MG TAB PO PRN (14:45)
[2018-03-25] MEDS ORDERED: ACETAMINOPHEN 325 MG TAB PO PRN (15:00)
[2018-03-25] MEDS ORDERED: ALUM & MAG HYDROX-SIMETH LIQ(MAALOX) 30 ML PO ONE (15:00)
[2018-03-25] MEDS ORDERED: MORPHINE SULFATE 4 MG/ML SYR/VIAL IV PRN ×2 (15:00)
[2018-03-25] MEDS ORDERED: ZOLPIDEM TARTRATE 5 MG TAB PO PRN (15:00)
[2018-03-25] MEDS ORDERED: LORazepam 0.5 MG TAB PO PRN (15:00)
[2018-03-25] MEDS ORDERED: NITROGLYCERIN 0.4 MG SL TAB SL PRN ×2 (15:00)
[2018-03-25] MEDS ORDERED: POTASSIUM CHL 10 Meq TABLET PO ONE (15:15)
[2018-03-25] MEDS ORDERED: AZITHROMYCIN 250 MG TAB PO ONE (15:15)
[2018-03-25] MEDS ORDERED: DEXTROSE (50%) 50ML SYRG IV PRN (15:15)
[2018-03-25] MEDS ORDERED: ADENOSINE 6 MG/2 ML INJ IV ONE ×2 (15:40→15:45)
[2018-03-25] MEDS ORDERED: AMIODARONE HCL 150 MG in D5W 5% 100 ML IV ONE (16:00)
[2018-03-25] MEDS ORDERED: AMIODARONE HCL 900 MG in DEXTROSE 500 ML IV SCH (16:02)
[2018-03-25] MEDS ORDERED: MAGNESIUM SULFATE 1GM/100ML 100 ML IV ONE (16:45)
[2018-03-25] MEDS: ACCU-CHEK COMFORT CURVE STRIP VI SCH ×2 (17:04→22:04)
[2018-03-25] MEDS: InsuLIN REG 1unit/0.01ml Soln (100units/ml) SC SCH ×2 (17:07→22:03)
[2018-03-25] MEDS: IPRATROPIUM BROM 0.5 MG/2.5ML INH SOL NEB SCH (18:00)
[2018-03-25] MEDS: ALBUTEROL SULF 2.5 MG/0.5ML(0.5%) NEB SOLN NEB SCH (18:00)
[2018-03-25] MEDS: Glucerna Carbsteady SHAKE Vanilla 8oz PO SCH (18:05)
[2018-03-25] MEDS: CARVEDILOL 3.125 MG TAB PO SCH (21:52)
[2018-03-25] MEDS: LISINOPRIL 10 MG TAB PO SCH (21:52)
[2018-03-25] MEDS: SODIUM CHLOR 0.9% PF (SALINE LOCK) 10ML VIAL/SYR IV SCH (21:53)
[2018-03-25] MEDS: ENOXAPARIN SOD 60 MG/0.6 ML SYRINGE SC SCH (22:03)
[2018-03-25] MEDS: MAGNESIUM OXIDE 400 MG TAB PO SCH (22:03)
[2018-03-25] MEDS: ATORVASTATIN 20 MG TAB PO SCH (22:03)
[2018-03-25] MEDS: AMIODARONE HCL 900 MG in DEXTROSE 500 ML IV SCH (22:04)
[2018-03-25] MEDS: APIXABAN 2.5 MG TAB PO SCH (22:08)
[2018-03-26] MEDS: ALBUTEROL SULF 2.5 MG/0.5ML(0.5%) NEB SOLN NEB SCH ×4 (00:10→18:52)
[2018-03-26] MEDS: IPRATROPIUM BROM 0.5 MG/2.5ML INH SOL NEB SCH ×4 (00:10→18:52)
[2018-03-26 01:49] VITALS: BP 97/65
[2018-03-26 05:32] LABS: Basophils # (auto) 0 uL; Basophils % (auto) 0.4 % (0.0-2.0); Eosinophils # (auto) 0 uL; Eosinophils % (auto) 0.3 % (0.0-7.0); Hematocrit 29.5 % (36.0-46.0); Hemoglobin 10.1 g/dL (12.2-16.2); Lymphocytes % (auto) 10.6 % (10.0-50.0); Mean Corpuscular Hemoglobin 31.5 pg (28.0-32.0); Mean Corpuscular Hgb Conc. 34.1 g/dL (32.0-36.0); Mean Corpuscular Volume 92.3 fL (80.0-100.0); Monocytes # (auto) 0.6 uL; Monocytes % (auto) 6.7 % (0.0-12.0); Neutrophils # (auto) 7.4 uL; Platelet Count (auto) 131 10^3/uL (140-450); Red Blood Cells 3.19 10^6/uL (4.0-5.20); Red Cell Distribution Width 14.9 % (11.8-14.3)
[2018-03-26 06:05] LABS: Albumin 2.3 g/dL (3.4-5.0); BUN/Creatinine Ratio 31.3; Bilirubin, Total 0.4 mg/dL (0.2-1.0); Calcium 7.4 mg/dL (8.5-10.1); Magnesium 2.2 mg/dL (1.6-2.6); Potassium 3.8 mmol/L (3.5-5.1); Total Protein 6.3 g/dL (6.4-8.2)
[2018-03-26] MEDS: SODIUM CHLOR 0.9% PF (SALINE LOCK) 10ML VIAL/SYR IV SCH ×3 (06:18→21:27)
[2018-03-26] MEDS: InsuLIN REG 1unit/0.01ml Soln (100units/ml) SC SCH ×4 (06:19→21:29)
[2018-03-26] MEDS: ACCU-CHEK COMFORT CURVE STRIP VI SCH ×4 (06:20→21:29)
[2018-03-26] MEDS ORDERED: ADENOSINE 46 MG in GIVE UN-DILUTED 0 ML IV ONE (08:15)
[2018-03-26] MEDS: Glucerna Carbsteady SHAKE Vanilla 8oz PO SCH ×3 (08:39→18:50)
[2018-03-26] MEDS: CARVEDILOL 3.125 MG TAB PO SCH ×2 (09:54→21:28)
[2018-03-26] MEDS: FUROSEMIDE 20 MG TAB PO SCH (09:54)
[2018-03-26] MEDS: ASPirin 81 mg TAB PO SCH (09:54)
[2018-03-26] MEDS: POTASSIUM CHLORIDE 8 MEQ TAB PO SCH (09:54)
[2018-03-26] MEDS: APIXABAN 2.5 MG TAB PO SCH (09:54)
[2018-03-26] MEDS: cefTRIAXone 1GM/10ml IVPUSH 10 ML IV SCH (09:54)
[2018-03-26] MEDS: DOCUSATE SOD 100 MG CAP PO SCH (09:54)
[2018-03-26] MEDS: AZITHROMYCIN 250 MG TAB PO SCH (09:55)
[2018-03-26] MEDS: LISINOPRIL 10 MG TAB PO SCH ×2 (09:55→21:29)
[2018-03-26] MEDS: MAGNESIUM OXIDE 400 MG TAB PO SCH ×2 (09:55→21:28)
[2018-03-26] MEDS: ENOXAPARIN SOD 60 MG/0.6 ML SYRINGE SC SCH (10:26)
[2018-03-26 11:37] LABS: INR 1.29 (0.9-1.15); Partial Thromboplastin Time 42.7 sec (23.78-33.04); Prothrombin Time 13.6 sec (9.27-12.13)
[2018-03-26] MEDS: ONDANSETRON HCL 4 MG/2 ML VIAL IV PRN (14:04)
[2018-03-26] MEDS: SODIUM CHLORIDE 0.9% 1,000 ML IV SCH (18:32)
[2018-03-26 20:30] VITALS: BP 133/78
[2018-03-26] MEDS: ATORVASTATIN 20 MG TAB PO SCH (21:28)
[2018-03-26] MEDS: AMIODARONE HCL 900 MG in DEXTROSE 500 ML IV SCH (21:29)
[2018-03-26] MEDS ORDERED: DONE10TA40 PO (21:37)
[2018-03-26] MEDS ORDERED: APIXABAN 2.5 MG TAB PO SCH (22:00)
[2018-03-27] VITALS: BP 113/72
[2018-03-27] MEDS: ALBUTEROL SULF 2.5 MG/0.5ML(0.5%) NEB SOLN NEB SCH ×4 (00:08→19:05)
[2018-03-27] MEDS: IPRATROPIUM BROM 0.5 MG/2.5ML INH SOL NEB SCH ×4 (00:08→19:05)
[2018-03-27 04:00] VITALS: BP 121/69
[2018-03-27] MEDS: SODIUM CHLOR 0.9% PF (SALINE LOCK) 10ML VIAL/SYR IV SCH ×3 (05:35→22:00)
[2018-03-27] MEDS: ACCU-CHEK COMFORT CURVE STRIP VI SCH ×4 (05:36→22:00)
[2018-03-27] MEDS: InsuLIN REG 1unit/0.01ml Soln (100units/ml) SC SCH ×4 (05:42→22:00)
[2018-03-27] MEDS: SODIUM CHLORIDE 0.9% 1,000 ML IV SCH ×2 (05:42→13:13)
[2018-03-27] MEDS ORDERED: LIDOCAINE 2% (LOCAL ANESTH.) PF 5ml SDV ONE (07:26)
[2018-03-27] MEDS ORDERED: LIDOCAINE VISCOUS 2% 15ML UD MT PRN (07:30)
[2018-03-27] MEDS ORDERED: fentaNYL CITRATE 100 MCG/2 ML VL ONE (07:41)
[2018-03-27] MEDS ORDERED: MIDAZOLAM HCL 1MG/1ML-2 ML VIAL ONE (07:41)
[2018-03-27] MEDS: Glucerna Carbsteady SHAKE Vanilla 8oz PO SCH ×3 (08:00→18:22)
[2018-03-27] MEDS: cefTRIAXone 1GM/10ml IVPUSH 10 ML IV SCH (09:55)
[2018-03-27] MEDS: ASPirin 81 mg TAB PO SCH (09:56)
[2018-03-27] MEDS: DOCUSATE SOD 100 MG CAP PO SCH (09:56)
[2018-03-27] MEDS: APIXABAN 2.5 MG TAB PO SCH ×2 (09:58→22:00)
[2018-03-27] MEDS: POTASSIUM CHLORIDE 8 MEQ TAB PO SCH (09:59)
[2018-03-27] MEDS: MAGNESIUM OXIDE 400 MG TAB PO SCH ×2 (09:59→22:00)
[2018-03-27] MEDS: AZITHROMYCIN 250 MG TAB PO SCH (09:59)
[2018-03-27] MEDS: FUROSEMIDE 20 MG TAB PO SCH (09:59)
[2018-03-27] MEDS ORDERED: CARVEDILOL 3.125 MG TAB PO SCH (10:00)
[2018-03-27] MEDS: LISINOPRIL 5 MG TAB PO SCH (10:00)
[2018-03-27 12:04] VITALS: BP 112/69
[2018-03-27 15:55] VITALS: BP 94/62
[2018-03-27 20:00] VITALS: BP 108/54
[2018-03-27] MEDS ORDERED: APIXABAN 2.5 MG TAB PO SCH (22:00)
[2018-03-27] MEDS: ATORVASTATIN 20 MG TAB PO SCH (22:00)
[2018-03-28] VITALS (7 sets, daily range): BP systolic 106–139; BP diastolic 56–83
[2018-03-28] MEDS: ALBUTEROL SULF 2.5 MG/0.5ML(0.5%) NEB SOLN NEB SCH ×5 (00:43→23:48)
[2018-03-28] MEDS: IPRATROPIUM BROM 0.5 MG/2.5ML INH SOL NEB SCH ×5 (00:43→23:48)
[2018-03-28] MEDS: ONDANSETRON HCL 4 MG/2 ML VIAL IV PRN (00:54)
[2018-03-28] MEDS: SODIUM CHLOR 0.9% PF (SALINE LOCK) 10ML VIAL/SYR IV SCH ×3 (06:00→21:46)
[2018-03-28 06:01] LABS: Basophils # (auto) 0 uL; Basophils % (auto) 0.4 % (0.0-2.0); Eosinophils # (auto) 0 uL; Eosinophils % (auto) 0.4 % (0.0-7.0); Hematocrit 31.3 % (36.0-46.0); Hemoglobin 10.7 g/dL (12.2-16.2); Lymphocytes % (auto) 13.6 % (10.0-50.0); Mean Corpuscular Hemoglobin 31.5 pg (28.0-32.0); Mean Corpuscular Hgb Conc. 34.1 g/dL (32.0-36.0); Mean Corpuscular Volume 92.4 fL (80.0-100.0); Monocytes # (auto) 0.7 uL; Monocytes % (auto) 9.4 % (0.0-12.0); Neutrophils # (auto) 5.8 uL; Neutrophils % (auto) 76.2 % (37.0-80.0); Nucleated Red Blood Cells % 0.1 %; Platelet Count (auto) 187 10^3/uL (140-450); Red Blood Cells 3.39 10^6/uL (4.0-5.20); White Blood Cell 7.6 10^3/uL (4.4-10.8)
[2018-03-28 06:30] LABS: Albumin 2.4 g/dL (3.4-5.0); BUN/Creatinine Ratio 38.5; Bilirubin, Total 0.3 mg/dL (0.2-1.0); Calcium 7.7 mg/dL (8.5-10.1); Potassium 4.6 mmol/L (3.5-5.1); Total Protein 6.6 g/dL (6.4-8.2)
[2018-03-28] MEDS: InsuLIN REG 1unit/0.01ml Soln (100units/ml) SC SCH ×4 (07:00→22:00)
[2018-03-28] MEDS: ACCU-CHEK COMFORT CURVE STRIP VI SCH ×4 (07:01→22:00)
[2018-03-28] MEDS: Glucerna Carbsteady SHAKE Vanilla 8oz PO SCH ×3 (08:00→18:14)
[2018-03-28] MEDS: cefTRIAXone 1GM/10ml IVPUSH 10 ML IV SCH (09:47)
[2018-03-28] MEDS: AZITHROMYCIN 250 MG TAB PO SCH (09:48)
[2018-03-28] MEDS: LISINOPRIL 5 MG TAB PO SCH (09:49)
[2018-03-28] MEDS: APIXABAN 2.5 MG TAB PO SCH (10:00)
[2018-03-28] MEDS: ASPirin 81 mg TAB PO SCH (10:00)
[2018-03-28] MEDS: MAGNESIUM OXIDE 400 MG TAB PO SCH ×2 (10:00→21:48)
[2018-03-28] MEDS: DOCUSATE SOD 100 MG CAP PO SCH (10:00)
[2018-03-28] MEDS: SODIUM CHLORIDE 0.9% 1,000 ML IV SCH ×2 (10:15→23:35)
[2018-03-28] MEDS: POTASSIUM CHLORIDE 8 MEQ TAB PO SCH (12:48)
[2018-03-28] MEDS: FUROSEMIDE 20 MG TAB PO SCH (12:50)
[2018-03-28] MEDS: ATORVASTATIN 20 MG TAB PO SCH (21:48)
[2018-03-28] MEDS ORDERED: CARVEDILOL 3.125 MG TAB PO SCH (22:00)
[2018-03-29 05:59] LABS: Basophils # (auto) 0 uL; Basophils % (auto) 0.5 % (0.0-2.0); Eosinophils # (auto) 0.1 uL; Eosinophils % (auto) 1.3 % (0.0-7.0); Hematocrit 31.4 % (36.0-46.0); Hemoglobin 10.6 g/dL (12.2-16.2); Lymphocytes # (auto) 1.1 uL; Lymphocytes % (auto) 16.5 % (10.0-50.0); Mean Corpuscular Hemoglobin 31.3 pg (28.0-32.0); Mean Corpuscular Hgb Conc. 33.7 g/dL (32.0-36.0); Monocytes # (auto) 0.8 uL; Monocytes % (auto) 11.4 % (0.0-12.0); Neutrophils # (auto) 4.9 uL; Neutrophils % (auto) 70.3 % (37.0-80.0); Nucleated Red Blood Cells % 0.1 %; Platelet Count (auto) 195 10^3/uL (140-450); Red Blood Cells 3.38 10^6/uL (4.0-5.20); Red Cell Distribution Width 14.9 % (11.8-14.3)
[2018-03-29] MEDS: SODIUM CHLOR 0.9% PF (SALINE LOCK) 10ML VIAL/SYR IV SCH ×3 (06:00→21:55)
[2018-03-29 06:18] LABS: Albumin 2.2 g/dL (3.4-5.0); BUN/Creatinine Ratio 41.9; Calcium 7.4 mg/dL (8.5-10.1); Potassium 4.2 mmol/L (3.5-5.1)
[2018-03-29 06:21] LABS: Bilirubin, Total 0.3 mg/dL (0.2-1.0); Total Protein 6.4 g/dL (6.4-8.2)
[2018-03-29] MEDS: ALBUTEROL SULF 2.5 MG/0.5ML(0.5%) NEB SOLN NEB SCH ×3 (06:27→19:29)
[2018-03-29] MEDS: IPRATROPIUM BROM 0.5 MG/2.5ML INH SOL NEB SCH ×3 (06:27→19:30)
[2018-03-29] MEDS: InsuLIN REG 1unit/0.01ml Soln (100units/ml) SC SCH ×4 (06:46→21:57)
[2018-03-29] MEDS: ACCU-CHEK COMFORT CURVE STRIP VI SCH ×4 (06:47→21:57)
[2018-03-29] MEDS ORDERED: NALOXONE HCL 0.4 MG/ML VIAL ONE (07:12)
[2018-03-29] MEDS ORDERED: LIDOCAINE 2% (LOCAL ANESTH.) PF 5ml SDV ONE (07:13)
[2018-03-29] MEDS ORDERED: fentaNYL CITRATE 100 MCG/2 ML VL ONE (07:13)
[2018-03-29] MEDS ORDERED: SODIUM CHLORIDE LOCK 30 ML ONE (07:13)
[2018-03-29] MEDS ORDERED: FLUMAZENIL 0.1 MG/ML INJ 10ML MDV IV ONE (07:13)
[2018-03-29] MEDS ORDERED: EPINEPHrine HCL 1 MG/1 ML AMP ONE (07:14)
[2018-03-29] MEDS ORDERED: LIDOCAINE HCL 2% TOP JELLY 5ML TOP ONE (07:15)
[2018-03-29] MEDS ORDERED: GLYCOPYRROLATE 0.2 MG/ML 1ML VIAL ONE (07:15)
[2018-03-29] MEDS ORDERED: LIDOCAINE 2% JELLY 11ml (GLYDO) ONE ×2 (07:16)
[2018-03-29] MEDS: Glucerna Carbsteady SHAKE Vanilla 8oz PO SCH ×3 (08:00→18:00)
[2018-03-29] MEDS: MIDAZOLAM HCL 5 MG/ML-1ML VIAL ONE ×2 (08:33→08:37)
[2018-03-29] MEDS ORDERED: AMIODARONE HCL 200 MG TAB PO SCH ×2 (10:00)
[2018-03-29] MEDS: LISINOPRIL 5 MG TAB PO SCH (10:00)
[2018-03-29] MEDS: cefTRIAXone 1GM/10ml IVPUSH 10 ML IV SCH (11:42)
[2018-03-29] MEDS: MAGNESIUM OXIDE 400 MG TAB PO SCH ×2 (11:44→21:56)
[2018-03-29] MEDS: DOCUSATE SOD 100 MG CAP PO SCH (11:44)
[2018-03-29] MEDS: AZITHROMYCIN 250 MG TAB PO SCH (11:44)
[2018-03-29] MEDS: POTASSIUM CHLORIDE 8 MEQ TAB PO SCH (11:44)
[2018-03-29] MEDS: ASPirin 81 mg TAB PO SCH (11:44)
[2018-03-29] MEDS: FUROSEMIDE 20 MG TAB PO SCH (11:47)
[2018-03-29] MEDS: CARVEDILOL 3.125 MG TAB PO SCH ×2 (11:48→21:56)
[2018-03-29 12:00] VITALS: BP 130/86
[2018-03-29] MEDS: SODIUM CHLORIDE 0.9% 1,000 ML IV SCH (12:55)
[2018-03-29 15:49] VITALS: BP 133/62
[2018-03-29 19:53] VITALS: BP 116/66
[2018-03-29] MEDS: ATORVASTATIN 20 MG TAB PO SCH (21:55)
[2018-03-29] MEDS: AMIODARONE HCL 200 MG TAB PO SCH (21:56)
[2018-03-30] VITALS: BP 113/61
[2018-03-30] MEDS: ALBUTEROL SULF 2.5 MG/0.5ML(0.5%) NEB SOLN NEB SCH ×5 (00:15→23:23)
[2018-03-30] MEDS: IPRATROPIUM BROM 0.5 MG/2.5ML INH SOL NEB SCH ×5 (00:15→23:23)
[2018-03-30] MEDS: SODIUM CHLORIDE 0.9% 1,000 ML IV SCH ×2 (02:15→15:35)
[2018-03-30 06:10] LABS: Basophils # (auto) 0 uL; Basophils % (auto) 0.6 % (0.0-2.0); Eosinophils # (auto) 0.1 uL; Eosinophils % (auto) 1.8 % (0.0-7.0); Hematocrit 29.2 % (36.0-46.0); Lymphocytes # (auto) 0.9 uL; Mean Corpuscular Hemoglobin 31.6 pg (28.0-32.0); Mean Corpuscular Hgb Conc. 34.4 g/dL (32.0-36.0); Mean Corpuscular Volume 91.9 fL (80.0-100.0); Monocytes # (auto) 0.6 uL; Monocytes % (auto) 11.5 % (0.0-12.0); Neutrophils # (auto) 3.5 uL; Neutrophils % (auto) 69.1 % (37.0-80.0); Platelet Count (auto) 173 10^3/uL (140-450); Red Blood Cells 3.18 10^6/uL (4.0-5.20); Red Cell Distribution Width 14.8 % (11.8-14.3); White Blood Cell 5.1 10^3/uL (4.4-10.8)
[2018-03-30] MEDS ORDERED: DIGOXIN (250MCG/ML) 2 ML AMPULE IV ONE (06:30)
[2018-03-30 06:32] LABS: Potassium 4.3 mmol/L (3.5-5.1)
[2018-03-30] MEDS: ACCU-CHEK COMFORT CURVE STRIP VI SCH ×4 (06:39→21:21)
[2018-03-30] MEDS: SODIUM CHLOR 0.9% PF (SALINE LOCK) 10ML VIAL/SYR IV SCH ×3 (06:40→21:20)
[2018-03-30 06:46] LABS: BUN/Creatinine Ratio 38.1; Calcium 7.7 mg/dL (8.5-10.1)
[2018-03-30 06:57] LABS: Bilirubin, Total 0.4 mg/dL (0.2-1.0)
[2018-03-30] MEDS: InsuLIN REG 1unit/0.01ml Soln (100units/ml) SC SCH ×4 (07:00→22:00)
[2018-03-30 07:40] VITALS: BP 119/71
[2018-03-30 07:41] VITALS: BP 119/71
[2018-03-30] MEDS: cefTRIAXone 1GM/10ml IVPUSH 10 ML IV SCH (09:00)
[2018-03-30] MEDS: Glucerna Carbsteady SHAKE Vanilla 8oz PO SCH ×3 (09:40→17:58)
[2018-03-30] MEDS: DOCUSATE SOD 100 MG CAP PO SCH (09:41)
[2018-03-30] MEDS: AMIODARONE HCL 200 MG TAB PO SCH ×2 (09:41→21:18)
[2018-03-30] MEDS: POTASSIUM CHLORIDE 8 MEQ TAB PO SCH (09:42)
[2018-03-30] MEDS: APIXABAN 2.5 MG TAB PO SCH ×2 (09:42→21:18)
[2018-03-30] MEDS: LISINOPRIL 5 MG TAB PO SCH (09:43)
[2018-03-30] MEDS: MAGNESIUM OXIDE 400 MG TAB PO SCH ×2 (09:43→21:19)
[2018-03-30] MEDS: FUROSEMIDE 20 MG TAB PO SCH (09:43)
[2018-03-30] MEDS: DIGOXIN 0.125 MG TAB PO SCH (09:44)
[2018-03-30] MEDS: AZITHROMYCIN 250 MG TAB PO SCH (09:44)
[2018-03-30] MEDS: CARVEDILOL 3.125 MG TAB PO SCH ×2 (11:03→21:20)
[2018-03-30 11:54] VITALS: BP 120/66
[2018-03-30 15:50] VITALS: BP 112/67
[2018-03-30 19:45] VITALS: BP 117/73
[2018-03-30] MEDS: ATORVASTATIN 20 MG TAB PO SCH (21:18)
[2018-03-31] VITALS (9 sets, daily range): BP systolic 120–138; BP diastolic 46–86
[2018-03-31] MEDS: SODIUM CHLORIDE 0.9% 1,000 ML IV SCH ×2 (04:55→18:00)
[2018-03-31] MEDS: IPRATROPIUM BROM 0.5 MG/2.5ML INH SOL NEB SCH ×3 (05:48→19:53)
[2018-03-31] MEDS: ALBUTEROL SULF 2.5 MG/0.5ML(0.5%) NEB SOLN NEB SCH ×3 (05:48→19:53)
[2018-03-31] MEDS: ACCU-CHEK COMFORT CURVE STRIP VI SCH ×4 (06:27→21:35)
[2018-03-31] MEDS: InsuLIN REG 1unit/0.01ml Soln (100units/ml) SC SCH ×4 (06:27→21:47)
[2018-03-31] MEDS: SODIUM CHLOR 0.9% PF (SALINE LOCK) 10ML VIAL/SYR IV SCH ×3 (06:28→21:33)
[2018-03-31] MEDS ORDERED: LACTULOSE 20Gm/30ML SOLN PO ONE (09:15)
[2018-03-31] MEDS: Glucerna Carbsteady SHAKE Vanilla 8oz PO SCH ×3 (09:26→18:15)
[2018-03-31] MEDS: cefTRIAXone 1GM/10ml IVPUSH 10 ML IV SCH (09:26)
[2018-03-31] MEDS: AMIODARONE HCL 200 MG TAB PO SCH ×2 (09:28→21:34)
[2018-03-31] MEDS: DOCUSATE SOD 100 MG CAP PO SCH (09:28)
[2018-03-31] MEDS: MAGNESIUM OXIDE 400 MG TAB PO SCH ×2 (09:29→21:35)
[2018-03-31] MEDS: APIXABAN 2.5 MG TAB PO SCH ×2 (09:29→21:35)
[2018-03-31] MEDS: DIGOXIN 0.125 MG TAB PO SCH (09:30)
[2018-03-31] MEDS: CARVEDILOL 3.125 MG TAB PO SCH ×2 (09:30→21:35)
[2018-03-31] MEDS: POTASSIUM CHLORIDE 8 MEQ TAB PO SCH (09:30)
[2018-03-31] MEDS: LISINOPRIL 5 MG TAB PO SCH (09:31)
[2018-03-31] MEDS: AZITHROMYCIN 250 MG TAB PO SCH (09:32)
[2018-03-31] MEDS: FUROSEMIDE 20 MG TAB PO SCH (09:32)
[2018-03-31] MEDS: ATORVASTATIN 20 MG TAB PO SCH (21:35)
[2018-04-01] VITALS (7 sets, daily range): BP systolic 120–142; BP diastolic 59–79
[2018-04-01] MEDS: ALBUTEROL SULF 2.5 MG/0.5ML(0.5%) NEB SOLN NEB SCH ×4 (00:55→20:13)
[2018-04-01] MEDS: IPRATROPIUM BROM 0.5 MG/2.5ML INH SOL NEB SCH ×4 (00:55→20:13)
[2018-04-01] MEDS: SODIUM CHLOR 0.9% PF (SALINE LOCK) 10ML VIAL/SYR IV SCH ×3 (06:28→22:42)
[2018-04-01] MEDS: InsuLIN REG 1unit/0.01ml Soln (100units/ml) SC SCH ×4 (06:29→22:00)
[2018-04-01] MEDS: ACCU-CHEK COMFORT CURVE STRIP VI SCH ×4 (06:29→22:19)
[2018-04-01] MEDS: DOCUSATE SOD 100 MG CAP PO SCH (10:59)
[2018-04-01] MEDS: cefTRIAXone 1GM/10ml IVPUSH 10 ML IV SCH (10:59)
[2018-04-01] MEDS: Glucerna Carbsteady SHAKE Vanilla 8oz PO SCH ×3 (10:59→18:11)
[2018-04-01] MEDS: AMIODARONE HCL 200 MG TAB PO SCH ×2 (11:00→22:18)
[2018-04-01] MEDS: POTASSIUM CHLORIDE 8 MEQ TAB PO SCH (11:01)
[2018-04-01] MEDS: CARVEDILOL 3.125 MG TAB PO SCH ×2 (11:01→22:18)
[2018-04-01] MEDS: APIXABAN 2.5 MG TAB PO SCH ×2 (11:01→22:18)
[2018-04-01] MEDS: FUROSEMIDE 20 MG TAB PO SCH (11:02)
[2018-04-01] MEDS: MAGNESIUM OXIDE 400 MG TAB PO SCH ×2 (11:02→22:17)
[2018-04-01] MEDS: DIGOXIN 0.125 MG TAB PO SCH (11:02)
[2018-04-01] MEDS: AZITHROMYCIN 250 MG TAB PO SCH (11:03)
[2018-04-01] MEDS: LISINOPRIL 5 MG TAB PO SCH (11:03)
[2018-04-01] MEDS: SODIUM CHLORIDE 0.9% 1,000 ML IV SCH ×2 (18:09→20:55)
[2018-04-01] MEDS: ATORVASTATIN 20 MG TAB PO SCH (22:18)
[2018-04-02] MEDS: IPRATROPIUM BROM 0.5 MG/2.5ML INH SOL NEB SCH ×4 (00:21→18:56)
[2018-04-02] MEDS: ALBUTEROL SULF 2.5 MG/0.5ML(0.5%) NEB SOLN NEB SCH ×4 (00:21→18:56)
[2018-04-02 05:13] VITALS: BP 129/84
[2018-04-02] MEDS: InsuLIN REG 1unit/0.01ml Soln (100units/ml) SC SCH ×4 (07:00→22:00)
[2018-04-02] MEDS: ACCU-CHEK COMFORT CURVE STRIP VI SCH ×4 (07:05→22:14)
[2018-04-02] MEDS: SODIUM CHLOR 0.9% PF (SALINE LOCK) 10ML VIAL/SYR IV SCH ×3 (07:06→22:11)
[2018-04-02] MEDS: Glucerna Carbsteady SHAKE Vanilla 8oz PO SCH ×3 (08:30→18:30)
[2018-04-02 09:00] VITALS: BP 149/95
[2018-04-02] MEDS: cefTRIAXone 1GM/10ml IVPUSH 10 ML IV SCH (09:38)
[2018-04-02] MEDS: APIXABAN 2.5 MG TAB PO SCH ×2 (09:39→22:13)
[2018-04-02] MEDS: DIGOXIN 0.125 MG TAB PO SCH (09:45)
[2018-04-02] MEDS: AMIODARONE HCL 200 MG TAB PO SCH ×2 (09:45→22:13)
[2018-04-02] MEDS: DOCUSATE SOD 100 MG CAP PO SCH (09:50)
[2018-04-02] MEDS: AZITHROMYCIN 250 MG TAB PO SCH (09:50)
[2018-04-02] MEDS: LISINOPRIL 5 MG TAB PO SCH (09:51)
[2018-04-02] MEDS: CARVEDILOL 3.125 MG TAB PO SCH (09:52)
[2018-04-02] MEDS: FUROSEMIDE 20 MG TAB PO SCH (09:52)
[2018-04-02] MEDS: MAGNESIUM OXIDE 400 MG TAB PO SCH ×2 (09:53→22:13)
[2018-04-02] MEDS: POTASSIUM CHLORIDE 8 MEQ TAB PO SCH (09:53)
[2018-04-02] MEDS: SODIUM CHLORIDE 0.9% 1,000 ML IV SCH ×2 (10:15→23:35)
[2018-04-02 13:00] VITALS: BP 100/51
[2018-04-02] MEDS ORDERED: METOPROLOL TARTRATE 50 MG TAB PO ONE (13:30)
[2018-04-02 17:00] VITALS: BP 119/74
[2018-04-02 22:00] VITALS: BP 128/69
[2018-04-02] MEDS: METOPROLOL TARTRATE 50 MG TAB PO SCH (22:12)
[2018-04-02] MEDS: ATORVASTATIN 20 MG TAB PO SCH (22:12)
[2018-04-03] MEDS: IPRATROPIUM BROM 0.5 MG/2.5ML INH SOL NEB SCH ×4 (00:24→18:52)
[2018-04-03] MEDS: ALBUTEROL SULF 2.5 MG/0.5ML(0.5%) NEB SOLN NEB SCH ×4 (00:24→18:52)
[2018-04-03 05:00] VITALS: BP 146/76
[2018-04-03] MEDS: SODIUM CHLOR 0.9% PF (SALINE LOCK) 10ML VIAL/SYR IV SCH ×3 (06:13→21:30)
[2018-04-03] MEDS: ACCU-CHEK COMFORT CURVE STRIP VI SCH ×4 (06:14→21:32)
[2018-04-03] MEDS: InsuLIN REG 1unit/0.01ml Soln (100units/ml) SC SCH ×4 (06:16→21:42)
[2018-04-03] MEDS: Glucerna Carbsteady SHAKE Vanilla 8oz PO SCH ×3 (08:30→18:30)
[2018-04-03 09:00] VITALS: BP 137/68
[2018-04-03 09:26] VITALS: BP 146/76
[2018-04-03] MEDS: APIXABAN 2.5 MG TAB PO SCH ×2 (09:39→21:31)
[2018-04-03] MEDS: cefTRIAXone 1GM/10ml IVPUSH 10 ML IV SCH (09:39)
[2018-04-03] MEDS: AMIODARONE HCL 200 MG TAB PO SCH ×2 (09:40→21:31)
[2018-04-03] MEDS: POTASSIUM CHLORIDE 8 MEQ TAB PO SCH (09:40)
[2018-04-03] MEDS: LISINOPRIL 5 MG TAB PO SCH (09:40)
[2018-04-03] MEDS: AZITHROMYCIN 250 MG TAB PO SCH (09:40)
[2018-04-03] MEDS: DOCUSATE SOD 100 MG CAP PO SCH (09:40)
[2018-04-03] MEDS: MAGNESIUM OXIDE 400 MG TAB PO SCH ×2 (09:40→21:32)
[2018-04-03] MEDS: FUROSEMIDE 20 MG TAB PO SCH (09:41)
[2018-04-03] MEDS: DIGOXIN 0.125 MG TAB PO SCH (09:42)
[2018-04-03] MEDS: METOPROLOL TARTRATE 50 MG TAB PO SCH ×2 (09:42→21:32)
[2018-04-03] MEDS: SODIUM CHLORIDE 0.9% 1,000 ML IV SCH (12:55)
[2018-04-03 13:00] VITALS: BP 131/72
[2018-04-03 17:00] VITALS: BP 149/69
[2018-04-03] MEDS: ATORVASTATIN 20 MG TAB PO SCH (21:31)
[2018-04-03 21:50] VITALS: BP 135/62
[2018-04-04] MEDS: ALBUTEROL SULF 2.5 MG/0.5ML(0.5%) NEB SOLN NEB SCH ×4 (00:05→19:34)
[2018-04-04] MEDS: IPRATROPIUM BROM 0.5 MG/2.5ML INH SOL NEB SCH ×4 (00:05→19:34)
[2018-04-04] MEDS: SODIUM CHLORIDE 0.9% 1,000 ML IV SCH ×2 (02:15→15:35)
[2018-04-04 04:41] VITALS: BP 145/63
[2018-04-04] MEDS: SODIUM CHLOR 0.9% PF (SALINE LOCK) 10ML VIAL/SYR IV SCH ×3 (06:03→21:51)
[2018-04-04] MEDS: InsuLIN REG 1unit/0.01ml Soln (100units/ml) SC SCH ×4 (07:00→22:00)
[2018-04-04] MEDS: ACCU-CHEK COMFORT CURVE STRIP VI SCH ×4 (07:00→21:53)
[2018-04-04] MEDS: Glucerna Carbsteady SHAKE Vanilla 8oz PO SCH ×3 (08:38→18:46)
[2018-04-04] MEDS: cefTRIAXone 1GM/10ml IVPUSH 10 ML IV SCH (08:38)
[2018-04-04 09:00] VITALS: BP 166/70
[2018-04-04] MEDS: DOCUSATE SOD 100 MG CAP PO SCH (09:50)
[2018-04-04] MEDS: AZITHROMYCIN 250 MG TAB PO SCH (09:51)
[2018-04-04] MEDS: DIGOXIN 0.125 MG TAB PO SCH (09:51)
[2018-04-04] MEDS: MAGNESIUM OXIDE 400 MG TAB PO SCH ×2 (09:51→21:52)
[2018-04-04] MEDS: POTASSIUM CHLORIDE 8 MEQ TAB PO SCH (09:51)
[2018-04-04] MEDS: AMIODARONE HCL 200 MG TAB PO SCH ×2 (09:51→21:51)
[2018-04-04] MEDS: APIXABAN 2.5 MG TAB PO SCH ×2 (09:51→21:52)
[2018-04-04] MEDS: LISINOPRIL 5 MG TAB PO SCH (09:52)
[2018-04-04] MEDS: FUROSEMIDE 20 MG TAB PO SCH (09:52)
[2018-04-04] MEDS: METOPROLOL TARTRATE 50 MG TAB PO SCH ×2 (09:52→21:52)
[2018-04-04 13:00] VITALS: BP 127/76
[2018-04-04 15:52] LABS: Basophils # (auto) 0.1 uL; Eosinophils # (auto) 0.1 uL; Eosinophils % (auto) 1.8 % (0.0-7.0); Lymphocytes % (auto) 13.9 % (10.0-50.0); Mean Corpuscular Hemoglobin 30.9 pg (28.0-32.0); Mean Corpuscular Hgb Conc. 33.4 g/dL (32.0-36.0); Mean Corpuscular Volume 92.5 fL (80.0-100.0); Monocytes # (auto) 0.5 uL; Monocytes % (auto) 7.2 % (0.0-12.0); Neutrophils # (auto) 5.4 uL; Neutrophils % (auto) 76.1 % (37.0-80.0); Platelet Count (auto) 219 10^3/uL (140-450); Red Blood Cells 3.57 10^6/uL (4.0-5.20); Red Cell Distribution Width 14.9 % (11.8-14.3); White Blood Cell 7.1 10^3/uL (4.4-10.8)
[2018-04-04 16:44] LABS: BUN/Creatinine Ratio 34.5; Bilirubin, Total 0.2 mg/dL (0.2-1.0); Calcium 8.3 mg/dL (8.5-10.1); Potassium 4.3 mmol/L (3.5-5.1); Total Protein 6.3 g/dL (6.4-8.2)
[2018-04-04 17:00] VITALS: BP 171/61
[2018-04-04 17:40] VITALS: BP 146/79
[2018-04-04] MEDS: ATORVASTATIN 20 MG TAB PO SCH (21:52)
[2018-04-04 22:00] VITALS: BP 135/67
[2018-04-05] MEDS: IPRATROPIUM BROM 0.5 MG/2.5ML INH SOL NEB SCH ×2 (00:16→05:37)
[2018-04-05] MEDS: ALBUTEROL SULF 2.5 MG/0.5ML(0.5%) NEB SOLN NEB SCH ×2 (00:16→05:37)
[2018-04-05] MEDS: SODIUM CHLORIDE 0.9% 1,000 ML IV SCH (04:50)
[2018-04-05 05:00] VITALS: BP 139/82
[2018-04-05] MEDS: SODIUM CHLOR 0.9% PF (SALINE LOCK) 10ML VIAL/SYR IV SCH (06:38)
[2018-04-05] MEDS: ACCU-CHEK COMFORT CURVE STRIP VI SCH ×2 (06:38→12:03)
[2018-04-05] MEDS: InsuLIN REG 1unit/0.01ml Soln (100units/ml) SC SCH ×2 (06:39→11:30)
[2018-04-05] MEDS: Glucerna Carbsteady SHAKE Vanilla 8oz PO SCH (08:09)
[2018-04-05 09:00] VITALS: BP 166/90
[2018-04-05] MEDS: cefTRIAXone 1GM/10ml IVPUSH 10 ML IV SCH (09:30)
[2018-04-05] MEDS: AZITHROMYCIN 250 MG TAB PO SCH (09:31)
[2018-04-05] MEDS: DOCUSATE SOD 100 MG CAP PO SCH (09:32)
[2018-04-05] MEDS: POTASSIUM CHLORIDE 8 MEQ TAB PO SCH (09:32)
[2018-04-05] MEDS: AMIODARONE HCL 200 MG TAB PO SCH (09:32)
[2018-04-05] MEDS: DIGOXIN 0.125 MG TAB PO SCH (09:32)
[2018-04-05] MEDS: MAGNESIUM OXIDE 400 MG TAB PO SCH (09:32)
[2018-04-05] MEDS: APIXABAN 2.5 MG TAB PO SCH (09:32)
[2018-04-05] MEDS: METOPROLOL TARTRATE 50 MG TAB PO SCH (09:36)
[2018-04-05] MEDS: FUROSEMIDE 20 MG TAB PO SCH (09:36)
[2018-04-05] MEDS: LISINOPRIL 5 MG TAB PO SCH (09:37)
[2018-04-05 10:49] VITALS: BP 146/76
== END 2018-04-05 12:00 | disposition home or self-care (01) | DRG 280 ==
LOC: EDBD 07:48 → ER 07:53 → OVERFLOW 07:54 → DOU IN ICU 03-26 20:28 → TELE-CENTR 03-31 16:35
PROVIDERS: ADMIT Internal Medicine; ATTEND Family Medicine
PROC: 0B9D8ZX Drainage of Right Middle Lung Lobe, Via Natural or Artificial Opening Endoscopic, Diagnostic (ICD-10-PCS; 2018-03-29)
PROC: B246ZZ4 Ultrasonography of Right and Left Heart, Transesophageal (ICD-10-PCS; 2018-03-29)
PROC: 0BDD8ZX Extraction of Right Middle Lung Lobe, Via Natural or Artificial Opening Endoscopic, Diagnostic (ICD-10-PCS; principal; 2018-03-29 08:30)
DX: I21.4 Non-ST elevation (NSTEMI) myocardial infarction (principal); J18.1 Lobar pneumonia, unspecified organism; I50.43 Acute on chronic combined systolic (congestive) and diastolic (congestive) heart failure; J96.01 Acute respiratory failure with hypoxia; E44.0 Moderate protein-calorie malnutrition; C34.90 Malignant neoplasm of unspecified part of unspecified bronchus or lung; I13.0 Hypertensive heart and chronic kidney disease with heart failure and stage 1 through stage 4 chronic kidney disease, or unspecified chronic kidney disease; I47.1 Supraventricular tachycardia; I48.92 Unspecified atrial flutter; J44.0 Chronic obstructive pulmonary disease with (acute) lower respiratory infection; J44.1 Chronic obstructive pulmonary disease with (acute) exacerbation; I08.3 Combined rheumatic disorders of mitral, aortic and tricuspid valves; E87.6 Hypokalemia; M19.90 Unspecified osteoarthritis, unspecified site; N18.2 Chronic kidney disease, stage 2 (mild); E11.21 Type 2 diabetes mellitus with diabetic nephropathy; E11.22 Type 2 diabetes mellitus with diabetic chronic kidney disease; E11.65 Type 2 diabetes mellitus with hyperglycemia; E83.51 Hypocalcemia; F41.9 Anxiety disorder, unspecified; D63.8 Anemia in other chronic diseases classified elsewhere; F03.90 Unspecified dementia, unspecified severity, without behavioral disturbance, psychotic disturbance, mood disturbance, and anxiety; E78.5 Hyperlipidemia, unspecified; F17.210 Nicotine dependence, cigarettes, uncomplicated; B95.62 Methicillin resistant Staphylococcus aureus infection as the cause of diseases classified elsewhere; I20.9 Angina pectoris, unspecified; G89.4 Chronic pain syndrome; I44.30 Unspecified atrioventricular block; J39.8 Other specified diseases of upper respiratory tract; J98.09 Other diseases of bronchus, not elsewhere classified; Z79.01 Long term (current) use of anticoagulants; Z82.49 Family history of ischemic heart disease and other diseases of the circulatory system; Z83.3 Family history of diabetes mellitus; Z90.710 Acquired absence of both cervix and uterus; Z87.81 Personal history of (healed) traumatic fracture; Z79.82 Long term (current) use of aspirin; Z79.899 Other long term (current) drug therapy
CPT/HCPCS: 36415; 36600; 51702; 71045; 71275; 76604; 80053; 80061; 80162; 81001; 82805; 82962; 83036; 83605; 83735; 83880; 84443; 84484; 85025; 85379; 85610; 85730; 87040; 87081; 87086; 93005; 93312; 93970; 93971; 94640; 94761; 96361; 96374; 97110; 97116; 97163; 97530; 99152; A6257; G0378; J0153; J0171; J0696; J1815; J2001; J2250; J2405; J7060

== ENCOUNTER 2018-10-31 12:17 | Inpatient (IN) | payer OTHER, MEDICAID, MEDICARE | END 2018-11-03 16:00 | disposition home or self-care (01) | LOC: ER 12:17 → TELE-EAST 19:00 | PROC: 0JH606Z Insertion of Pacemaker, Dual Chamber into Chest Subcutaneous Tissue and Fascia, Open Approach (ICD-10-PCS; principal; ~2018-10-31) | DX: I49.5 Sick sinus syndrome (principal); N17.9 Acute kidney failure, unspecified; E86.9 Volume depletion, unspecified; N18.3 Chronic kidney disease, stage 3 (moderate); E86.1 Hypovolemia ==

== ENCOUNTER → 2018-12-20 | Outpatient (CLI) | payer OTHER, MEDICAID ==
[~2018-12-20] MED LIST changes: -ACE104IS NEB; -ALB5IS NEB; -ALBUAER3 IN; -ALPR0.25 PO; -AMOX-263 PO; -AZIT500T4 PO; -CITA10TA59 PO; -DOCU-80 PO; -DOCU100C8 PO; +DONE10TA40 PO; -LACT10SO3 PO; -MOMLQ PO; -POLY33504 PO; +POTA10TA51 PO; -POTA20TA53 PO; -SENN8.6C PO; +SILD20TA PO
== END | disposition home or self-care (01) ==
LOC: Rad HDHVI 10:44
PROVIDERS: ATTEND Internal Medicine Cardiovascular Disease
DX: I08.1 Rheumatic disorders of both mitral and tricuspid valves (principal); I27.0 Primary pulmonary hypertension; I49.5 Sick sinus syndrome
CPT/HCPCS: 93306